=== PATIENT | male | born 1940 | race Caucasian/White ===

== ENCOUNTER 2017-08-07 21:49 | Emergency (ER) | payer MEDICARE, OTHER ==
--- NOTE | 2017-08-07 22:47 | EDM.PDOC ---
ED HPI GENERAL MEDICAL PROBLEM - General Chief Complaint: General Stated Complaint: WHOLE BODY HURTS, [id number] Time Seen by Provider: 08/07/17 22:46 Source of Information: Reports: Patient History Limitations: Reports: No Limitations - History of Present Illness INITIAL COMMENTS - FREE TEXT/NARRATIVE: states doesn't feel good since "they" took away his grand-daughter. Headache Pain Score (Numeric/FACES): 7 Abdomen Pain Score (Numeric/FACES): 4 - Related Data Allergies Allergy/AdvReac Type Severity Reaction Status Date / Time morphine Allergy Severe Difficulty Verified 08/07/17 22:55 Breathing amoxicillin [Amoxicillin] Allergy Diarrhea Verified 08/07/17 22:55 doxycycline Allergy Rash Verified 08/07/17 22:55 gabapentin Allergy Cannot Verified 08/07/17 22:55 Remember tiotropium bromide Allergy Cannot Verified 08/07/17 22:55 [From [facility] with Remember HandiHaler] Home Meds: Home Meds Acetaminophen [Tylenol Extra Strength] 1,000 mg PO BID 03/08/14 [History] Albuterol [Proventil Neb Soln] 1 unit NEB Q4HR PRN 03/08/14 [History] Albuterol [Proventil] 2.5 mg NEB BID 03/08/14 [History] Albuterol [Ventolin HFA] 2 puff INH Q6H PRN 03/08/14 [History] Aspirin [Ecotrin] 81 mg PO DAILY 03/08/14 [History] Atenolol [Tenormin] 50 mg PO DAILY 03/08/14 [History] Fish Oil/[place]-3 Fatty Acids [Fish Oil 1,000 MG] 1 gm PO BID 03/08/14 [History] Furosemide [Lasix] 60 mg PO DAILY 03/08/14 [History] Nitroglycerin [Nitrostat] 0.4 mg SL ASDIRECTED PRN 03/08/14 [History] Omeprazole 20 mg PO DAILY 03/08/14 [History] Potassium Chloride [Klor-Con] 40 meq PO BID 03/08/14 [History] Simvastatin [Zocor] 10 mg PO BEDTIME 03/08/14 [History] Tamsulosin [Flomax] 0.4 mg PO DAILY 03/08/14 [History] Aclidinium [place] [Tudorza Pressair] 400 mcg INH BID 04/12/14 [History] Finasteride [Finasteride] 5 mg PO DAILY 04/04/15 [History] Mometasone/Formoterol [Dulera 200-5 MCG] 1 puff INH ASDIRECTED 04/04/15 [History ] rOPINIRole [Requip] 0.5 mg PO ASDIRECTED 04/04/15 [History] Benzonatate [Tessalon Perles] 100 mg PO QID PRN #10 cap 02/07/16 [Rx] Past Medical History HEENT History: Reports: Hard of Hearing, Impaired Vision Other HEENT History: bilateral hearing aids, glasses Cardiovascular History: Reports: High Cholesterol, Hypertension, Stents Respiratory History: Reports: Bronchitis, Recurrent, COPD, Pneumonia, Recurrent , SOB, Other (See Below) Other Respiratory History: lung mass/lung cancer, left upper lobectomy Gastrointestinal History: Reports: GERD, Pancreatitis Other Gastrointestinal History: duodenal ulcer disease Other Genitourinary History: BPH Musculoskeletal History: Reports: Arthritis, Fracture Other Musculoskeletal History: ankle arthroscopy, 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 Psychiatric History: Reports: Anxiety Endocrine/Metabolic History: Reports: Diabetes, Type II Oncologic (Cancer) History: Reports: Lung - Infectious Disease History Infectious Disease History: Reports: Chicken Pox, Measles, Mumps - Past Surgical History HEENT Surgical History: Reports: Adenoidectomy, Cataract Surgery, Tonsillectomy , Other (See Below) Cardiovascular Surgical History: Reports: Coronary Artery Stent, Other (See Below) GI Surgical History: Reports: Cholecystectomy, Colonoscopy, EGD Male Surgical History: Reports: Other (See Below) Social & Family History - Family History Cardiac: Reports: Hypertension, [place] - Tobacco Use Smoking Status *Q: Former Smoker Years of Tobacco use: 40 Packs/Tins Daily: 2.5 Used Tobacco, but Quit: Yes Month Tobacco Last Used: 26 years ago Second Hand Smoke Exposure: Yes - Caffeine Use Caffeine Use: Reports: Coffee - Alcohol Use Days Per Week of Alcohol Use: 0 - Recreational Drug Use Recreational Drug Use: No Drug Use in Last 12 Months: No ED ROS GENERAL - Review of Systems Review Of Systems: ROS reveals no pertinent complaints other than HPI. ED EXAM, GENERAL - Physical Exam Exam: See Below Exam Limited By: No Limitations General Appearance: Alert, WD/WN, Mild Distress, Other (tearful upset) Ears: Hearing Grossly Normal Throat/Mouth: Normal Voice, No Airway Compromise Head: Atraumatic Neck: Non-Tender, Full Range of Motion Respiratory/Chest: No Respiratory Distress, No Accessory Muscle Use, Rhonchi, Other (basilar) Cardiovascular: Regular Rate, Rhythm GI/Abdominal: Soft, Non-Tender Neurological: Alert, Oriented, Normal Cognition, Normal Gait, No Motor/Sensory Deficits Psychiatric: Depressed Mood, Tearful Skin Exam: Warm, Dry, Normal Color Lymphatic: No Adenopathy Course - Vital Signs Last Recorded V/S: Last Vital Signs Temp 37.3 C 08/07/17 22:25 Pulse 101 H 08/07/17 22:25 Resp 22 H 08/07/17 22:25 BP 139/108 H 08/07/17 22:25 Pulse Ox 92 L 08/07/17 22:25 - Orders/Labs/Meds Orders: Active Orders 24 hr Category Date Time Status EKG 12 Lead [EKG Documentation Completion] [RC] STAT Care 08/07/17 22:44 Active Sodium Chloride 0.9% [Normal Saline] 1,000 ml Med 08/07/17 23:00 Active IV ASDIRECTED Medication Orders Sodium Chloride (Normal Saline) 1,000 mls @ 100 mls/hr IV ASDIRECTED TITO Last Admin: 08/07/17 22:50 Dose: 100 mls/hr Labs: Laboratory Tests 08/07/17 08/07/17 Range/Units 22:44 22:44 WBC 13.4 H (5.0-10.0) 10^3/uL RBC 4.31 L (4.6-6.2) 10^6/uL Hgb 13.8 L D (14.0-18.0) g/dL Hct 40.6 (40.0-54.0) % MCV 94.2 D (80-100) fL MCH 32.0 (27.0-34.0) pg MCHC 34.0 (33.0-35.0) g/dL Plt Count 170 D (150-450) 10^3/uL Neut % (Auto) 77.8 H (42.2-75.2) % Lymph % (Auto) 14.5 L (20.5-50.1) % [place] % (Auto) 7.1 (2-8) % Eos % (Auto) 0.5 L (1.0-3.0) % Baso % (Auto) 0.1 (0.0-1.0) % Sodium 137 (135-145) mmol/L Potassium 4.0 (3.6-5.0) mmol/L Chloride 102 (101-111) mmol/L Carbon Dioxide 28.0 (21.0-31.0) mmol/L Anion Gap 11.0 BUN 21 H (7-18) mg/dL Creatinine 1.4 H (0.6-1.3) mg/dL Est Cr Clr Drug Dosing 47.73 mL/min Estimated GFR (MDRD) 49 BUN/Creatinine Ratio 15.00 Glucose 174 H (74-105) mg/dL Calcium 8.8 (8.4-10.2) mg/dl Total Bilirubin 1.0 (0.2-1.0) mg/dL AST 19 (10-42) IU/L ALT 19 (10-60) IU/L Alkaline Phosphatase 81 (42-121) IU/L Troponin I < 0.02 (0.00-0.02) ng/ml Total Protein 6.6 L (6.7-8.2) g/dl Albumin 3.9 (3.2-5.5) g/dl Globulin 2.7 Albumin/Globulin Ratio 1.44 Amylase 30 (28-100) U/L Lipase 20 L (22-51) U/L Meds: Medications Generic Name Dose Route Start Last Admin Trade Name Freq PRN Reason Stop Dose Admin Sodium Chloride 1,000 mls @ 100 mls/hr 08/07/17 23:00 08/07/17 22:50 Normal Saline IV 100 mls/hr ASDIRECTED TITO Administration Discontinued Medications Generic Name Dose Route Start Last Admin Trade Name Freq PRN Reason Stop Dose Admin Acetaminophen 325 mg 08/08/17 01:26 08/08/17 01:31 Tylenol PO 08/08/17 01:27 325 mg NOW ONE Administration - Re-Assessments/Exams Free Text/Narrative Re-Assessment/Exam: 08/08/17 00:23 Crisis called casr discussed with Richa who found placement in [place]. 08/08/17 03:28 case discussed with [facility] Mei Delgado kindly accepted pt. Departure - Departure Time of Disposition: 03:29 Disposition: DC/Tfer to Psych Hosp/Unit [facility] Condition: Good Clinical Impression: Suicidal ideation - Discharge Information Forms: Interfacility Transfer LEANNE - My Orders Last 24 Hours: My Active Orders 08/07/17 22:44 EKG 12 Lead [EKG Documentation Completion] [RC] STAT 08/07/17 23:00 Sodium Chloride 0.9% [Normal Saline] 1,000 ml IV ASDIRECTED - Assessment/Plan Last 24 Hours: My Active Orders 08/07/17 22:44 EKG 12 Lead [EKG Documentation Completion] [RC] STAT 08/07/17 23:00 Sodium Chloride 0.9% [Normal Saline] 1,000 ml IV ASDIRECTED
[2017-08-07] MEDS ORDERED: Sodium Chloride 0.9% 1,000 ML IV SCH (23:00)
[2017-08-07 23:12] LABS: CHLORIDE,CL 102 mmol/L (101-111); SODIUM,NA 137 mmol/L (135-145)
[2017-08-07 23:15] VITALS: BP 139/108
[2017-08-08] MEDS ORDERED: Acetaminophen 325 MG Tab PO ONE (01:26)
--- NOTE | 2017-08-08 13:51 | EKG ---
08/07/2017- ANGIE CRAWFORD - EKG per my reading shows sinus rhythm at a rate of 100. No acute ST changes. [facility] /[id number]
== END 2017-08-08 04:10 ==
LOC: DL.ED 21:49
DX: R45.851 Suicidal ideations (principal); E78.00 Pure hypercholesterolemia, unspecified; I10 Essential (primary) hypertension; E11.9 Type 2 diabetes mellitus without complications; F41.9 Anxiety disorder, unspecified; K21.9 Gastro-esophageal reflux disease without esophagitis; Z87.01 Personal history of pneumonia (recurrent); J44.9 Chronic obstructive pulmonary disease, unspecified; Z90.49 Acquired absence of other specified parts of digestive tract; Z98.890 Other specified postprocedural states; Z87.891 Personal history of nicotine dependence; Z88.5 Allergy status to narcotic agent; Z88.8 Allergy status to other drugs, medicaments and biological substances; Z79.899 Other long term (current) drug therapy; Z88.1 Allergy status to other antibiotic agents
CPT/HCPCS: 36415; 80053; 82150; 83690; 84484; 85025; 93005; 93010; 96360; 96361; 99285; A9270; J7030; 99284

== ENCOUNTER 2019-01-16 11:17 | Emergency (ER) | payer MEDICARE, OTHER ==
[2019-01-16 11:27] VITALS: BP 130/67
--- NOTE | 2019-01-16 11:57 | EDM.PDOC ---
ED HPI GENERAL MEDICAL PROBLEM - General Chief Complaint: Lower Extremity Injury/Pain Stated Complaint: DRESSING CHANGE Time Seen by Provider: 01/16/19 11:52 Source of Information: Reports: Patient History Limitations: Reports: No Limitations - History of Present Illness INITIAL COMMENTS - FREE TEXT/NARRATIVE: s/p ORIF yesterday @ [place], was bleeding post op but told will stop but didn't, called [place] told to come here. family states bleeding looks worse today. Right Foot Pain Score (Numeric/FACES): 5 - Related Data Allergies Allergy/AdvReac Type Severity Reaction Status Date / Time morphine Allergy Severe Difficulty Verified 01/16/19 11:22 Breathing amoxicillin [Amoxicillin] Allergy Diarrhea Verified 01/16/19 11:22 doxycycline Allergy Rash Verified 01/16/19 11:22 gabapentin Allergy Cannot Verified 01/16/19 11:22 Remember tiotropium bromide Allergy Cannot Verified 01/16/19 11:22 [From [facility] with Remember HandiHaler] Home Meds: Home Meds Acetaminophen [Tylenol Extra Strength] 1,000 mg PO BID 03/08/14 [History] Albuterol [Proventil Neb Soln] 1 unit NEB Q4HR PRN 03/08/14 [History] Albuterol [Proventil] 2.5 mg NEB BID 03/08/14 [History] Albuterol [Ventolin HFA] 2 puff INH Q6H PRN 03/08/14 [History] Aspirin [Ecotrin] 81 mg PO DAILY 03/08/14 [History] Atenolol [Tenormin] 50 mg PO DAILY 03/08/14 [History] Fish Oil/[place]-3 Fatty Acids [Fish Oil 1,000 MG] 1 gm PO BID 03/08/14 [History] Furosemide [Lasix] 60 mg PO DAILY 03/08/14 [History] Nitroglycerin [Nitrostat] 0.4 mg SL ASDIRECTED PRN 03/08/14 [History] Omeprazole 20 mg PO DAILY 03/08/14 [History] Potassium Chloride [Klor-Con] 40 meq PO BID 03/08/14 [History] Simvastatin [Zocor] 10 mg PO BEDTIME 03/08/14 [History] Tamsulosin [Flomax] 0.4 mg PO DAILY 03/08/14 [History] Aclidinium [place] [Tudorza Pressair] 400 mcg INH BID 04/12/14 [History] Finasteride 5 mg PO DAILY 04/04/15 [History] Mometasone/Formoterol [Dulera 200-5 MCG] 1 puff INH ASDIRECTED 04/04/15 [History ] rOPINIRole [Requip] 0.5 mg PO ASDIRECTED 04/04/15 [History] Benzonatate [Tessalon Perles] 100 mg PO QID PRN #10 cap 02/07/16 [Rx] Past Medical History HEENT History: Reports: Hard of Hearing, Impaired Vision Other HEENT History: bilateral hearing aids, glasses Cardiovascular History: Reports: High Cholesterol, Hypertension, Stents Respiratory History: Reports: Bronchitis, Recurrent, COPD, Pneumonia, Recurrent , SOB, Other (See Below) Other Respiratory History: lung mass/lung cancer, left upper lobectomy Gastrointestinal History: Reports: GERD, Pancreatitis Other Gastrointestinal History: duodenal ulcer disease Other Genitourinary History: BPH Musculoskeletal History: Reports: Arthritis, Fracture Other Musculoskeletal History: ankle arthroscopy, intercostal neuralgia Neurological History: Reports: Other (See Below) Other Neuro History: intercostal neuralgia Psychiatric History: Reports: Anxiety Endocrine/Metabolic History: Reports: Diabetes, Type II Hematologic History: Reports: None Immunologic History: Reports: None Oncologic (Cancer) History: Reports: Lung Dermatologic History: Reports: None - Infectious Disease History Infectious Disease History: Reports: Chicken Pox, Measles, Mumps - Past Surgical History Head Surgeries/Procedures: Reports: None HEENT Surgical History: Reports: Adenoidectomy, Cataract Surgery, Tonsillectomy , Other (See Below) Cardiovascular Surgical History: Reports: Coronary Artery Stent, Other (See Below) GI Surgical History: Reports: Cholecystectomy, Colonoscopy, EGD Male Surgical History: Reports: Other (See Below) Social & Family History - Family History Family Medical History: Noncontributory Cardiac: Reports: Hypertension, [place] - Tobacco Use Smoking Status *Q: Former Smoker Used Tobacco, but Quit: Yes Month/Year Tobacco Last Used: ? - Caffeine Use Caffeine Use: Reports: Coffee - Recreational Drug Use Recreational Drug Use: No Review of Systems - Review of Systems Review Of Systems: ROS reveals no pertinent complaints other than HPI. ED EXAM, GENERAL - Physical Exam Exam: See Below Exam Limited By: No Limitations General Appearance: Alert, WD/WN, Mild Distress, Other ([place]) Ears: Hearing Grossly Normal Throat/Mouth: Normal Voice, No Airway Compromise Head: Atraumatic Neck: Non-Tender, Full Range of Motion Respiratory/Chest: No Respiratory Distress Cardiovascular: Regular Rate, Rhythm GI/Abdominal: Soft, Non-Tender Extremities: Other (right post op wound without s/s cellulitis, kelly intact, minimal oozing, [place] wnl.) Neurological: Alert, Oriented, Normal Cognition, No Motor/Sensory Deficits Psychiatric: Normal Affect, Normal Mood Skin Exam: Warm, Dry, Normal Color Lymphatic: No Adenopathy Course - Vital Signs Last Recorded V/S: Last Vital Signs Temp 36.6 C 01/16/19 11:23 Pulse 88 01/16/19 11:23 Resp 20 01/16/19 11:23 BP 130/67 01/16/19 11:23 Pulse Ox 95 01/16/19 11:23 - Re-Assessments/Exams Free Text/Narrative Re-Assessment/Exam: 01/16/19 13:29 results discussed with pt. no further bleeding from surgical site. redressed. Departure - Departure Time of Disposition: 13:30 Disposition: Home, Self-Care 01 Condition: Good Clinical Impression: Post-op bleeding Qualifiers: Surgical complication system/body Area: subcutaneous tissue Procedure type: dermatologic Qualified Code(s): L76.21 - Postprocedural hemorrhage of skin and subcutaneous tissue following a dermatologic procedure - Discharge Information Forms: ED Department Discharge Additional Instructions: 1) elevated leg as much as possible next 48 hours 2) see surgeon Friday if still oozing 3) recheck if there is any change or concern
== END 2019-01-16 13:37 | disposition home or self-care (01) ==
LOC: DL.ED 11:17
DX: M96.830 Postprocedural hemorrhage of a musculoskeletal structure following a musculoskeletal system procedure (principal); E78.00 Pure hypercholesterolemia, unspecified; I10 Essential (primary) hypertension; E11.9 Type 2 diabetes mellitus without complications; Z87.891 Personal history of nicotine dependence; Z88.1 Allergy status to other antibiotic agents; Z95.5 Presence of coronary angioplasty implant and graft; Z88.5 Allergy status to narcotic agent; Z88.8 Allergy status to other drugs, medicaments and biological substances; Z79.899 Other long term (current) drug therapy
CPT/HCPCS: 76881-RT; 99283-25

== ENCOUNTER 2020-11-05 10:40 | Inpatient (IN) | payer OTHER, MEDICARE ==
--- NOTE | 2020-11-05 10:44 | EDM.PDOC ---
ED HPI GENERAL MEDICAL PROBLEM - General Chief Complaint: General Stated Complaint: AMBULANCE Time Seen by Provider: 11/05/20 10:43 Source of Information: Reports: Patient, RN, RN Notes Reviewed History Limitations: Reports: No Limitations - History of Present Illness INITIAL COMMENTS - FREE TEXT/NARRATIVE: Patient is an 79-year-old male who presents to ER per [facility] with complaint of increased shortness of breath and left hip pain. Patient states he was diagnosed with pneumonia approximately 3 weeks ago, was tested for Covid at that time and that was negative. Also states he slipped and fell on the ice approximately 3 weeks ago and has been having some left left hip pain today he was unable to get up on his own. Having a productive sputum with cough, sputum is thick yellow. Chest pains and some shortness of breath. No vomiting but does complain of nausea. States he has had diarrhea. States he had blood in the stool 1 time last week, bright red blood. States he has had a temp at home 99-99.5, chills. States he has been using Tylenol and ibuprofen quite frequently for the pain. States history of stents in his heart, 3 of them. Unknown if he has had an IA in the past. Patient admits to diabetes and emphysema. Onset: Gradual Left Hip Pain Score (Numeric/FACES): 1 - Related Data Allergies Allergy/AdvReac Type Severity Reaction Status Date / Time morphine Allergy Severe Difficulty Verified 11/05/20 12:01 Breathing amoxicillin [Amoxicillin] Allergy Diarrhea Verified 11/05/20 12:01 doxycycline Allergy Rash Verified 11/05/20 12:01 gabapentin Allergy Cannot Verified 11/05/20 12:01 Remember oxycodone Allergy Confusion Verified 11/05/20 12:01 tiotropium bromide Allergy Cannot Verified 11/05/20 12:01 [From [facility] with Remember HandiHaler] Home Meds: Home Meds Acetaminophen [Tylenol Extra Strength] 1,000 mg PO BID PRN 03/08/14 [History] Albuterol [Proventil] 2.5 mg NEB BID PRN 03/08/14 [History] Albuterol [Ventolin HFA] 2 puff INH Q6H PRN 03/08/14 [History] Aspirin [Ecotrin EC] 81 mg PO DAILY 03/08/14 [History] Atenolol [Tenormin] 50 mg PO DAILY 03/08/14 [History] Fish Oil/[place]-3 Fatty Acids [Fish Oil 1,000 MG] 1 gm PO BID 03/08/14 [History] Furosemide [Lasix] 60 mg PO DAILY 03/08/14 [History] Nitroglycerin [Nitrostat] 0.4 mg SL ASDIRECTED PRN 03/08/14 [History] Omeprazole 20 mg PO DAILY 03/08/14 [History] Potassium Chloride [Klor-Con] 40 meq PO BID 03/08/14 [History] Simvastatin [Zocor] 10 mg PO BEDTIME 03/08/14 [History] Tamsulosin [Flomax] 0.4 mg PO DAILY 03/08/14 [History] Finasteride 5 mg PO DAILY 04/04/15 [History] Mometasone/Formoterol [Dulera 200-5 MCG] 1 puff INH ASDIRECTED 04/04/15 [History] rOPINIRole [Requip] 0.5 mg PO DAILY 04/04/15 [History] Insulin Glarg,Human.Rec.Analog [Lantus] 16 units SQ BEDTIME 11/05/20 [History] Past Medical History HEENT History: Reports: Hard of Hearing, Impaired Vision Other HEENT History: bilateral hearing aids, glasses Cardiovascular History: Reports: High Cholesterol, Hypertension, Stents Respiratory History: Reports: Bronchitis, Recurrent, COPD, Pneumonia, Recurrent, SOB, Other (See Below) Other Respiratory History: lung mass/lung cancer, left upper lobectomy Gastrointestinal History: Reports: GERD, Pancreatitis Other Gastrointestinal History: duodenal ulcer disease Other Genitourinary History: BPH Musculoskeletal History: Reports: Arthritis, Fracture Other Musculoskeletal History: ankle arthroscopy, intercostal neuralgia Neurological History: Reports: Other (See Below) Other Neuro History: intercostal neuralgia Psychiatric History: Reports: Anxiety Endocrine/Metabolic History: Reports: Diabetes, Type II Hematologic History: Reports: None Immunologic History: Reports: None Oncologic (Cancer) History: Reports: Lung Dermatologic History: Reports: None - Infectious Disease History Infectious Disease History: Reports: Chicken Pox, Measles, Mumps - Past Surgical History Head Surgeries/Procedures: Reports: None HEENT Surgical History: Reports: Adenoidectomy, Cataract Surgery, Tonsillectomy, Other (See Below) Cardiovascular Surgical History: Reports: Coronary Artery Stent, Other (See Below) GI Surgical History: Reports: Cholecystectomy, Colonoscopy, EGD Male Surgical History: Reports: Other (See Below) Social & Family History - Family History Family Medical History: No Pertinent Family History Cardiac: Reports: Hypertension, IA - Caffeine Use Caffeine Use: Reports: Coffee ED ROS GENERAL - Review of Systems Review Of Systems: Comprehensive ROS is negative, except as noted in HPI. ED EXAM, GENERAL - Physical Exam Exam: See Below Exam Limited By: Physical Impairment General Appearance: Alert, WD/WN, Mild Distress Eye Exam: Bilateral Eye: EOMI, Normal Inspection Ears: Normal External Exam, Hearing Grossly Normal Nose: Normal Inspection Throat/Mouth: Normal Inspection, Normal Voice, No Airway Compromise Head: Atraumatic, Normocephalic Neck: Normal Inspection, Supple, Non-Tender, Full Range of Motion Respiratory/Chest: No Respiratory Distress, Decreased Breath Sounds, Crackles (throughout), Rhonchi (throughout\\) Cardiovascular: Normal Peripheral Pulses, Regular Rate, Rhythm, No Edema, No Gallop, No JVD, No Murmur, No Rub Peripheral Pulses: 2+: Radial (L), Radial (R) GI/Abdominal: Normal Bowel Sounds, Soft, Non-Tender (Male) Exam: Deferred Rectal (Males) Exam: Deferred Back Exam: Normal Inspection, Decreased Range of Motion Extremities: Leg Pain (left leg/hip pain), Limited Range of Motion (left leg/hip) Neurological: Alert, Oriented, CN II-XII Intact, Normal Cognition Psychiatric: Normal Affect, Normal Mood Skin Exam: Warm, Dry, Intact, Normal Color, No Rash Lymphatic: No Adenopathy Course - Vital Signs Last Recorded V/S: Last Vital Signs Temp 97.6 F 11/05/20 10:42 Pulse 71 11/05/20 10:42 Resp 16 11/05/20 10:42 BP 145/74 H 11/05/20 10:42 Pulse Ox 100 11/05/20 10:42 - Orders/Labs/Meds Orders: Active Orders 24 hr Category Date Time Status Admission Diagnosis [ADT] Stat ADT 11/05/20 14:51 Ordered Patient Status [ADT] Routine ADT 11/05/20 14:51 Active CULTURE BLOOD [BC] Stat Lab 11/05/20 10:54 Received CULTURE BLOOD [BC] Stat Lab 11/05/20 10:59 Received UA W/ANKUR RFLX IF INDICATED [URIN] Stat Lab 11/05/20 10:29 Ordered Blood Culture x2 Reflex Set [OM.PC] Stat Oth 11/05/20 10:29 Ordered Labs: Laboratory Tests 11/05/20 11/05/20 11/05/20 Range/Units 10:54 10:54 10:54 WBC 3.8 L (5.0-10.0) 10^3/uL RBC 4.08 L (4.6-6.2) 10^6/uL Hgb 13.1 L (14.0-18.0) g/dL Hct 38.4 L (40.0-54.0) % MCV 94.1 (80-100) fL MCH 32.1 (27.0-34.0) pg MCHC 34.1 (33.0-35.0) g/dL Plt Count 134 L (150-450) 10^3/uL Neut % (Auto) 63.5 (42.2-75.2) % Lymph % (Auto) 31.2 (20.5-50.1) % Cook % (Auto) 4.5 (2-8) % Eos % (Auto) 0.8 L (1.0-3.0) % Baso % (Auto) 0.0 (0.0-1.0) % PT 10.0 (9.0-12.0) SEC INR 1.1 (0.9-1.2) D-Dimer, Quantitative 501 H (0-400) ng/mL Sodium 137 (136-145) mmol/L Potassium 3.7 (3.5-5.1) mmol/L Chloride 103 (98-107) mmol/L Carbon Dioxide 26 (21-32) mmol/L Anion Gap 11.7 (7-13) mEq/L BUN 12 (7-18) mg/dL Creatinine 0.91 (0.70-1.30) mg/dL Est Cr Clr Drug Dosing 69.88 mL/min Estimated GFR (MDRD) > 60 BUN/Creatinine Ratio 13.2 (No establ ref range) Glucose 114 H (74-99) mg/dL Lactic Acid (0.4-2.0) mmol/L Calcium 7.7 L (8.5-10.1) mg/dL Magnesium 1.9 (1.8-2.4) mg/dL Total Bilirubin 0.4 (0.2-1.0) mg/dL AST 30 (15-37) U/L ALT 31 (16-63) U/L Alkaline Phosphatase 74 (46-116) U/L Lactate Dehydrogenase 231 H (85-227) U/L Troponin I 0.019 (0.000-0.056) ng/mL C-Reactive Protein 4.1 H (0.0-0.9) mg/dL B-Natriuretic Peptide 53 (0-100) pg/ml Total Protein 5.5 L (6.4-8.2) g/dL Albumin 2.5 L (3.4-5.0) g/dL Globulin 3.0 Albumin/Globulin Ratio 0.83 Salicylates (2.8-20(Therapeutic)) mg/dL Acetaminophen (10-30 (Therapeutic)) ug/mL SARS-CoV-2 RNA (PAWEL) (NEGATIVE) 11/05/20 11/05/20 11/05/20 Range/Units 10:54 10:54 10:54 WBC (5.0-10.0) 10^3/uL RBC (4.6-6.2) 10^6/uL Hgb (14.0-18.0) g/dL Hct (40.0-54.0) % MCV (80-100) fL MCH (27.0-34.0) pg MCHC (33.0-35.0) g/dL Plt Count (150-450) 10^3/uL Neut % (Auto) (42.2-75.2) % Lymph % (Auto) (20.5-50.1) % Cook % (Auto) (2-8) % Eos % (Auto) (1.0-3.0) % Baso % (Auto) (0.0-1.0) % PT (9.0-12.0) SEC INR (0.9-1.2) D-Dimer, Quantitative (0-400) ng/mL Sodium (136-145) mmol/L Potassium (3.5-5.1) mmol/L Chloride (98-107) mmol/L Carbon Dioxide (21-32) mmol/L Anion Gap (7-13) mEq/L BUN (7-18) mg/dL Creatinine (0.70-1.30) mg/dL Est Cr Clr Drug Dosing mL/min Estimated GFR (MDRD) BUN/Creatinine Ratio (No establ ref range) Glucose (74-99) mg/dL Lactic Acid 0.9 (0.4-2.0) mmol/L Calcium (8.5-10.1) mg/dL Magnesium (1.8-2.4) mg/dL Total Bilirubin (0.2-1.0) mg/dL AST (15-37) U/L ALT (16-63) U/L Alkaline Phosphatase (46-116) U/L Lactate Dehydrogenase (85-227) U/L Troponin I (0.000-0.056) ng/mL C-Reactive Protein (0.0-0.9) mg/dL B-Natriuretic Peptide (0-100) pg/ml Total Protein (6.4-8.2) g/dL Albumin (3.4-5.0) g/dL Globulin Albumin/Globulin Ratio Salicylates < 2.8 L (2.8-20(Therapeutic)) mg/dL Acetaminophen 14 (10-30 (Therapeutic)) ug/mL SARS-CoV-2 RNA (PAWEL) (NEGATIVE) 11/05/20 Range/Units 11:10 WBC (5.0-10.0) 10^3/uL RBC (4.6-6.2) 10^6/uL Hgb (14.0-18.0) g/dL Hct (40.0-54.0) % MCV (80-100) fL MCH (27.0-34.0) pg MCHC (33.0-35.0) g/dL Plt Count (150-450) 10^3/uL Neut % (Auto) (42.2-75.2) % Lymph % (Auto) (20.5-50.1) % Cook % (Auto) (2-8) % Eos % (Auto) (1.0-3.0) % Baso % (Auto) (0.0-1.0) % PT (9.0-12.0) SEC INR (0.9-1.2) D-Dimer, Quantitative (0-400) ng/mL Sodium (136-145) mmol/L Potassium (3.5-5.1) mmol/L Chloride (98-107) mmol/L Carbon Dioxide (21-32) mmol/L Anion Gap (7-13) mEq/L BUN (7-18) mg/dL Creatinine (0.70-1.30) mg/dL Est Cr Clr Drug Dosing mL/min Estimated GFR (MDRD) BUN/Creatinine Ratio (No establ ref range) Glucose (74-99) mg/dL Lactic Acid (0.4-2.0) mmol/L Calcium (8.5-10.1) mg/dL Magnesium (1.8-2.4) mg/dL Total Bilirubin (0.2-1.0) mg/dL AST (15-37) U/L ALT (16-63) U/L Alkaline Phosphatase (46-116) U/L Lactate Dehydrogenase (85-227) U/L Troponin I (0.000-0.056) ng/mL C-Reactive Protein (0.0-0.9) mg/dL B-Natriuretic Peptide (0-100) pg/ml Total Protein (6.4-8.2) g/dL Albumin (3.4-5.0) g/dL Globulin Albumin/Globulin Ratio Salicylates (2.8-20(Therapeutic)) mg/dL Acetaminophen (10-30 (Therapeutic)) ug/mL SARS-CoV-2 RNA (PAWEL) Positive H (NEGATIVE) Meds: Medications Discontinued Medications Generic Name Dose Route Start Last Admin Trade Name Freq PRN Reason Stop Dose Admin Fentanyl 100 mcg 11/05/20 13:40 11/05/20 13:53 Sublimaze IVPUSH 11/05/20 13:41 100 mcg ONETIME ONE Administration Iopamidol 100 ml 11/05/20 13:31 11/05/20 13:53 [id number] (76%) IVPUSH 11/05/20 13:32 100 ml ONETIME ONE Administration - Radiology Interpretation Free Text/Narrative:: Chest xray: PROCEDURE INFORMATION: Exam: XR Chest, 1 View Exam date and time: 11/05/2020 12:31 PM Age: 79 years old Clinical indication: Other: Covid + HX left lung lobectomy; Additional info: Productive cough, SOB, chest pains TECHNIQUE: Imaging protocol: XR of the chest Views: 1 view. COMPARISON: CT Chest wo Cont 10/19/2019 11:05 AM FINDINGS: Lungs: Left-sided volume loss with the generalized haziness likely due to pleural thickening. Possible localized infiltrate in the right lower lung field. No definite soft tissue mass. Pleural space: Unremarkable. No pleural effusion. No pneumothorax. Heart/Mediastinum: Unremarkable. No cardiomegaly. Bones/joints: Unremarkable. IMPRESSION: 1. Findings in the left hemithorax likely due to previous surgery. 2. Possible focal infiltrate in the right lower lobe. Follow-up recommended. Thank you for allowing us to participate in the care of your patient. Dictated and Authenticated by: Tim Cotton MD 11/05/2020 1:14 PM Central Time ([place] & [place]) Left hip/pelvis xray: PROCEDURE INFORMATION: Exam: XR Left Hip with Pelvis when Performed Exam date and time: 11/05/2020 12:46 PM Age: 79 years old Clinical indication: Other: Pain; Additional info: Fall x3 weeks ago, pain, unable to stand TECHNIQUE: Imaging protocol: XR Left hip with pelvis when performed. Views: 2 or 3 views. COMPARISON: No relevant prior studies available. FINDINGS: Bones/joints: Unremarkable. No acute fracture. Soft tissues: Unremarkable. IMPRESSION: No acute findings. Thank you for allowing us to participate in the care of your patient. Dictated and Authenticated by: Tim Cotton MD 11/05/2020 1:15 PM Central Time ( & [place]) Chest CT with contrast: PROCEDURE INFORMATION: Exam: CT Chest With Contrast; Diagnostic Exam date and time: 11/05/2020 1:55 PM Age: 79 years old Clinical indication: Other: Pe protocol--d-dimer 508; Additional info: Covid positive, elevated d dimer TECHNIQUE: Imaging protocol: Diagnostic computed tomography of the chest with intravenous contrast. Radiation optimization: All CT scans at this facility use at least one of these dose optimization techniques: automated exposure control; mA and/or kV adjustment per patient size (includes targeted exams where dose is matched to clinical indication); or iterative reconstruction. Contrast material: [id number]; Contrast volume: 84 ml; Contrast route: INTRAVENOUS (IV); COMPARISON: CT Chest wo Cont 10/19/2019 11:05 AM FINDINGS: Lungs: Extensive consolidation/ground-glass opacities throughout the right lung and left lower lobe with prominent "honeycombing". No discrete soft tissue mass or nodule observed. Pleural space: Unremarkable. No pneumothorax. No pleural effusion. Heart: Unremarkable. No cardiomegaly. No pericardial effusion. Aorta: Unremarkable. No aortic aneurysm. Lymph nodes: Mediastinal adenopathy most likely reactive. Bones/joints: Unremarkable. No acute fracture. Soft tissues: Moderate-sized hiatus hernia. IMPRESSION: 1. Multi lobar pneumonitis compatible with COVID-19 infection. 2. No definite evidence of acute PE. 3. Mediastinal lymphadenopathy most likely reactive. 4. Moderate-sized hiatus hernia. Thank you for allowing us to participate in the care of your patient. Dictated and Authenticated by: Tim Cotton MD 11/05/2020 2:46 PM Central Time ([place] & [place]) See rad report - Re-Assessments/Exams Free Text/Narrative Re-Assessment/Exam: 11/05/20 15:19 Discussed patient case with Dr. Rubio who agreed to accept the patient for inpatient acute admission. Departure - Departure Time of Disposition: 15:18 Disposition: Admitted As Inpatient 64 Condition: Fair Clinical Impression: Pneumonia due to COVID-19 virus, Left hip pain, Generalized weakness Emphysema lung Qualifiers: Emphysema type: unspecified Qualified Code(s): J43.9 - Emphysema, unspecified - Discharge Information *PRESCRIPTION DRUG MONITORING PROGRAM REVIEWED*: No *COPY OF PRESCRIPTION DRUG MONITORING REPORT IN PATIENT MARIANNE: No Forms: ED Department Discharge Sepsis Event Note (ED) - Focused Exam Vital Signs: Vital Signs Temp Pulse Resp BP Pulse Ox 11/05/20 10:42 97.6 F 71 16 145/74 H 100 - My Orders Last 24 Hours: My Active Orders 11/05/20 10:29 UA W/ANKUR RFLX IF INDICATED [URIN] Stat Blood Culture x2 Reflex Set [OM.PC] Stat 11/05/20 10:54 CULTURE BLOOD [BC] Stat 11/05/20 10:59 CULTURE BLOOD [BC] Stat 11/05/20 14:51 Admission Diagnosis [ADT] Stat Patient Status [ADT] Routine - Assessment/Plan Last 24 Hours: My Active Orders 11/05/20 10:29 UA W/ANKUR RFLX IF INDICATED [URIN] Stat Blood Culture x2 Reflex Set [OM.PC] Stat 11/05/20 10:54 CULTURE BLOOD [BC] Stat 11/05/20 10:59 CULTURE BLOOD [BC] Stat 11/05/20 14:51 Admission Diagnosis [ADT] Stat Patient Status [ADT] Routine
[2020-11-05 11:37] LABS: ANION GAP 11.7 mEq/L (7-13); CHLORIDE,CL 103 mmol/L (98-107); SODIUM,NA 137 mmol/L (136-145)
--- NOTE | 2020-11-05 13:14 | CR ---
PROCEDURE INFORMATION: Exam: XR Chest, 1 View Exam date and time: 11/05/2020 12:31 PM Age: 79 years old Clinical indication: Other: Covid + HX left lung lobectomy; Additional info: Productive cough, SOB, chest pains TECHNIQUE: Imaging protocol: XR of the chest Views: 1 view. COMPARISON: CT Chest wo Cont 10/19/2019 11:05 AM FINDINGS: Lungs: Left-sided volume loss with the generalized haziness likely due to pleural thickening. Possible localized infiltrate in the right lower lung field. No definite soft tissue mass. Pleural space: Unremarkable. No pleural effusion. No pneumothorax. Heart/Mediastinum: Unremarkable. No cardiomegaly. Bones/joints: Unremarkable. IMPRESSION: 1. Findings in the left hemithorax likely due to previous surgery. 2. Possible focal infiltrate in the right lower lobe. Follow-up recommended.
--- NOTE | 2020-11-05 13:16 | CR ---
PROCEDURE INFORMATION: Exam: XR Left Hip with Pelvis when Performed Exam date and time: 11/05/2020 12:46 PM Age: 79 years old Clinical indication: Other: Pain; Additional info: Fall x3 weeks ago, pain, unable to stand TECHNIQUE: Imaging protocol: XR Left hip with pelvis when performed. Views: 2 or 3 views. COMPARISON: No relevant prior studies available. FINDINGS: Bones/joints: Unremarkable. No acute fracture. Soft tissues: Unremarkable. IMPRESSION: No acute findings.
[2020-11-05] MEDS ORDERED: Iopamidol 755 Mg/ML 100 ML Bottle IVPUSH ONE (13:31)
[2020-11-05] MEDS ORDERED: fentaNYL 100 MCG/2 ML SDV IVPUSH ONE (13:40)
--- NOTE | 2020-11-05 14:46 | CT ---
PROCEDURE INFORMATION: Exam: CT Chest With Contrast; Diagnostic Exam date and time: 11/05/2020 1:55 PM Age: 79 years old Clinical indication: Other: Pe protocol--d-dimer 508; Additional info: Covid positive, elevated d dimer TECHNIQUE: Imaging protocol: Diagnostic computed tomography of the chest with intravenous contrast. Radiation optimization: All CT scans at this facility use at least one of these dose optimization techniques: automated exposure control; mA and/or kV adjustment per patient size (includes targeted exams where dose is matched to clinical indication); or iterative reconstruction. Contrast material: [id number]; Contrast volume: 84 ml; Contrast route: INTRAVENOUS (IV); COMPARISON: CT Chest wo Cont 10/19/2019 11:05 AM FINDINGS: Lungs: Extensive consolidation/ground-glass opacities throughout the right lung and left lower lobe with prominent "honeycombing". No discrete soft tissue mass or nodule observed. Pleural space: Unremarkable. No pneumothorax. No pleural effusion. Heart: Unremarkable. No cardiomegaly. No pericardial effusion. Aorta: Unremarkable. No aortic aneurysm. Lymph nodes: Mediastinal adenopathy most likely reactive. Bones/joints: Unremarkable. No acute fracture. Soft tissues: Moderate-sized hiatus hernia. IMPRESSION: 1. Multi lobar pneumonitis compatible with COVID-19 infection. 2. No definite evidence of acute PE. 3. Mediastinal lymphadenopathy most likely reactive. 4. Moderate-sized hiatus hernia.
--- NOTE | 2020-11-05 15:50 | PCM.HP ---
H&P History of Present Illness - General Date of Service: 11/05/20 Admit Problem/Dx: Admission Diagnosis/Problem Admission Diagnosis/Problem Pneumonia Source of Information: Patient, EMS Notes Reviewed History Limitations: Reports: No Limitations - History of Present Illness Initial Comments - Free Text/Narative: Mr. Travis a 79 y.o.male with past medical history of HTN, HL, DM, CHF, COPD, former smoking, hx of lung CA s/p resection, Diabetes , CAD with stent SLIME, hx of EtOH abuse with prior pancreatitis, BPH and chronic GERD, dysphagia.with improvement with Botox injections before, but againprogressive without wt loss with dysphagia to solids and some liquids with some odynophagia with foods, but rare regurgitations. He was admitted at [facility] in june 2020 se en by GI and had botox injection and doing well now Today he presents to ER per [facility] with complaint of increased shortness of breath and left hip pain. Patient states he was diagnosed with pneumonia approximately 3 weeks ago, was tested for Covid at that time and that was negative. Also states he slipped and fell on the ice approximately 3 weeks ago and has been having some left left hip pain , today he was unable to get up on his own. Having a productive sputum with cough, sputum is thick yellow. Chest pains and some shortness of breath. No vomiting but does complain of nausea. States he has had diarrhea. States he had blood in the stool 1 time last week, bright red blood. States he has had a temp at home 99-99.5, chills. States he has been using Tylenol and ibuprofen quite frequently for the pain. Pt tested for COVID today ( 11/05/20) and he was posi tive. Pt had CT chest with contrast and negative for PE and showed Multilobar pneumonia compatible with COVID-19 infection and Mediastinal Lymphadenopathy most likely reactive Left Hip Pain Score (Numeric/FACES): 1 - Related Data Allergies/Adverse Reactions: Allergies Allergy/AdvReac Type Severity Reaction Status Date / Time morphine Allergy Severe Difficulty Verified 11/05/20 12:01 Breathing amoxicillin [Amoxicillin] Allergy Diarrhea Verified 11/05/20 12:01 doxycycline Allergy Rash Verified 11/05/20 12:01 gabapentin Allergy Cannot Verified 11/05/20 12:01 Remember oxycodone Allergy Confusion Verified 11/05/20 12:01 tiotropium bromide Allergy Cannot Verified 11/05/20 12:01 [From [facility] with Remember HandiHaler] Home Medications: Home Meds Acetaminophen [Tylenol Extra Strength] 1,000 mg PO BID PRN 03/08/14 [History] Albuterol [Proventil] 2.5 mg NEB BID PRN 03/08/14 [History] Albuterol [Ventolin HFA] 2 puff INH Q6H PRN 03/08/14 [History] Aspirin [Ecotrin EC] 81 mg PO DAILY 03/08/14 [History] Atenolol [Tenormin] 50 mg PO DAILY 03/08/14 [History] Fish Oil/Hume-3 Fatty Acids [Fish Oil 1,000 MG] 1 gm PO BID 03/08/14 [History] Furosemide [Lasix] 60 mg PO DAILY 03/08/14 [History] Nitroglycerin [Nitrostat] 0.4 mg SL ASDIRECTED PRN 03/08/14 [History] Omeprazole 20 mg PO DAILY 03/08/14 [History] Potassium Chloride [Klor-Con] 40 meq PO BID 03/08/14 [History] Simvastatin [Zocor] 10 mg PO BEDTIME 03/08/14 [History] Tamsulosin [Flomax] 0.4 mg PO DAILY 03/08/14 [History] Finasteride 5 mg PO DAILY 04/04/15 [History] Mometasone/Formoterol [Dulera 200-5 MCG] 1 puff INH ASDIRECTED 04/04/15 [History] rOPINIRole [Requip] 0.5 mg PO DAILY 04/04/15 [History] Insulin Glarg,Human.Rec.Analog [Lantus] 16 units SQ BEDTIME 11/05/20 [History] Past Medical History HEENT History: Reports: Hard of Hearing, Impaired Vision Other HEENT History: bilateral hearing aids, glasses Cardiovascular History: Reports: High Cholesterol, Hypertension, Stents Respiratory History: Reports: Bronchitis, Recurrent, COPD, Pneumonia, Recurrent, SOB, Other (See Below) Other Respiratory History: lung mass/lung cancer, left upper lobectomy Gastrointestinal History: Reports: GERD, Pancreatitis Other Gastrointestinal History: duodenal ulcer disease Other Genitourinary History: BPH Musculoskeletal History: Reports: Arthritis, Fracture Other Musculoskeletal History: ankle arthroscopy, intercostal neuralgia Neurological History: Reports: Other (See Below) Other Neuro History: intercostal neuralgia Psychiatric History: Reports: Anxiety Endocrine/Metabolic History: Reports: Diabetes, Type II Hematologic History: Reports: None Immunologic History: Reports: None Oncologic (Cancer) History: Reports: Lung Dermatologic History: Reports: None - Infectious Disease History Infectious Disease History: Reports: Chicken Pox, Measles, Mumps - Past Surgical History Head Surgeries/Procedures: Reports: None HEENT Surgical History: Reports: Adenoidectomy, Cataract Surgery, Tonsillectomy, Other (See Below) Other HEENT Surgeries/Procedures: bilat hearing aides Cardiovascular Surgical History: Reports: Coronary Artery Stent, Other (See Below) Other Cardiovascular Surgeries/Procedures: times three Respiratory Surgical History: Reports: Other (See Below) Other Respiratory Surgeries/Procedures: part of left lung removed for CA GI Surgical History: Reports: Cholecystectomy, Colonoscopy, EGD Male Surgical History: Reports: Other (See Below) Other Male Surgeries/Procedures: prostate surgery? Social & Family History - Family History Family Medical History: No Pertinent Family History Cardiac: Reports: Hypertension, SD - Tobacco Use Tobacco Use Status *Q: Former Tobacco User Used Tobacco, but Quit: Yes Month/Year Tobacco Last Used: 20 years ago - Caffeine Use Caffeine Use: Reports: Coffee - Recreational Drug Use Recreational Drug Use: No H&P Review of Systems - Review of Systems: Review Of Systems: See Below General: Reports: Weakness, Fatigue. Denies: Fever, Chills HEENT: Denies: Dysphasia, Headaches, Hearing Changes, Sore Throat, Visual Changes Pulmonary: Reports: Shortness of Breath, Cough, Sputum Cardiovascular: Reports: Dyspnea on Exertion. Denies: Chest Pain, Lightheadedness Gastrointestinal: Reports: Diarrhea. Denies: Abdominal Pain, Difficulty Swallowing, Nausea, Vomiting Genitourinary: Denies: Dysuria, Burning, Urgency Musculoskeletal: Denies: Shoulder Pain, Joint Swelling, Muscle Stiffness Skin: Denies: Cyanosis, Jaundice, Bruising, Pruritis, Rash Psychiatric: Denies: Confusion, Anxiety, Agitation Neurological: Denies: Confusion, Numbness, Tingling, Tremors Hematologic/Lymphatic: Reports: No Symptoms Immunologic: Reports: No Symptoms Exam - Exam Exam: See Below - Vital Signs Vital Signs: Last Vital Signs Temp 37.0 C 11/05/20 15:19 Pulse 81 11/05/20 15:19 Resp 22 H 11/05/20 15:19 BP 154/78 H 11/05/20 15:19 Pulse Ox 91 L 11/05/20 15:19 Weight: 106.594 kg - Exam Quality Assessment: Supplemental Oxygen, DVT Prophylaxis. No: Urinary Catheter General: Alert, Oriented, Cooperative HEENT: Conjunctiva Clear, Hearing Intact, Mucosa Moist & Mooar, Pupils Equal Neck: Supple. No: Lymphadenopathy, JVD, Thyromegaly Lungs: Clear to Auscultation, Normal Respiratory Effort, Decreased Breath Sounds, Crackles Cardiovascular: Regular Rate, Regular Rhythm, Systolic Murmur GI/Abdominal Exam: Normal Bowel Sounds, Soft, Non-Tender, No Distention (Male) Exam: Deferred Rectal (Males) Exam: Deferred Extremities: Normal Inspection, No Pedal Edema Skin: Warm, Dry, Intact Neurological: Cranial Nerves Intact, Reflexes Equal Bilateral Neuro Extensive - Mental Status: Alert, Oriented x3, Normal Mood/Affect Neuro Extensive - Motor, Sensory, Reflexes: CN II-XII Intact, Normal Gait, Normal Reflexes Psychiatric: Alert, Normal Affect, Normal Mood - Patient Data Lab Results Last 24 hrs: Laboratory Results - last 24 hr 11/05/20 11/05/20 11/05/20 Range/Units 10:54 10:54 10:54 WBC 3.8 L (5.0-10.0) 10^3/uL RBC 4.08 L (4.6-6.2) 10^6/uL Hgb 13.1 L (14.0-18.0) g/dL Hct 38.4 L (40.0-54.0) % MCV 94.1 (80-100) fL MCH 32.1 (27.0-34.0) pg MCHC 34.1 (33.0-35.0) g/dL Plt Count 134 L (150-450) 10^3/uL Neut % (Auto) 63.5 (42.2-75.2) % Lymph % (Auto) 31.2 (20.5-50.1) % Logan % (Auto) 4.5 (2-8) % Eos % (Auto) 0.8 L (1.0-3.0) % Baso % (Auto) 0.0 (0.0-1.0) % PT 10.0 (9.0-12.0) SEC INR 1.1 (0.9-1.2) D-Dimer, Quantitative 501 H (0-400) ng/mL Sodium 137 (136-145) mmol/L Potassium 3.7 (3.5-5.1) mmol/L Chloride 103 (98-107) mmol/L Carbon Dioxide 26 (21-32) mmol/L Anion Gap 11.7 (7-13) mEq/L BUN 12 (7-18) mg/dL Creatinine 0.91 (0.70-1.30) mg/dL Est Cr Clr Drug Dosing 69.88 mL/min Estimated GFR (MDRD) > 60 BUN/Creatinine Ratio 13.2 (No establ ref range) Glucose 114 H (74-99) mg/dL Lactic Acid (0.4-2.0) mmol/L Calcium 7.7 L (8.5-10.1) mg/dL Magnesium 1.9 (1.8-2.4) mg/dL Total Bilirubin 0.4 (0.2-1.0) mg/dL AST 30 (15-37) U/L ALT 31 (16-63) U/L Alkaline Phosphatase 74 (46-116) U/L Lactate Dehydrogenase 231 H (85-227) U/L Troponin I 0.019 (0.000-0.056) ng/mL C-Reactive Protein 4.1 H (0.0-0.9) mg/dL B-Natriuretic Peptide 53 (0-100) pg/ml Total Protein 5.5 L (6.4-8.2) g/dL Albumin 2.5 L (3.4-5.0) g/dL Globulin 3.0 Albumin/Globulin Ratio 0.83 Salicylates (2.8-20(Therapeutic)) mg/dL Acetaminophen (10-30 (Therapeutic)) ug/mL SARS-CoV-2 RNA (PAWEL) (NEGATIVE) 11/05/20 11/05/20 11/05/20 Range/Units 10:54 10:54 10:54 WBC (5.0-10.0) 10^3/uL RBC (4.6-6.2) 10^6/uL Hgb (14.0-18.0) g/dL Hct (40.0-54.0) % MCV (80-100) fL MCH (27.0-34.0) pg MCHC (33.0-35.0) g/dL Plt Count (150-450) 10^3/uL Neut % (Auto) (42.2-75.2) % Lymph % (Auto) (20.5-50.1) % Logan % (Auto) (2-8) % Eos % (Auto) (1.0-3.0) % Baso % (Auto) (0.0-1.0) % PT (9.0-12.0) SEC INR (0.9-1.2) D-Dimer, Quantitative (0-400) ng/mL Sodium (136-145) mmol/L Potassium (3.5-5.1) mmol/L Chloride (98-107) mmol/L Carbon Dioxide (21-32) mmol/L Anion Gap (7-13) mEq/L BUN (7-18) mg/dL Creatinine (0.70-1.30) mg/dL Est Cr Clr Drug Dosing mL/min Estimated GFR (MDRD) BUN/Creatinine Ratio (No establ ref range) Glucose (74-99) mg/dL Lactic Acid 0.9 (0.4-2.0) mmol/L Calcium (8.5-10.1) mg/dL Magnesium (1.8-2.4) mg/dL Total Bilirubin (0.2-1.0) mg/dL AST (15-37) U/L ALT (16-63) U/L Alkaline Phosphatase (46-116) U/L Lactate Dehydrogenase (85-227) U/L Troponin I (0.000-0.056) ng/mL C-Reactive Protein (0.0-0.9) mg/dL B-Natriuretic Peptide (0-100) pg/ml Total Protein (6.4-8.2) g/dL Albumin (3.4-5.0) g/dL Globulin Albumin/Globulin Ratio Salicylates < 2.8 L (2.8-20(Therapeutic)) mg/dL Acetaminophen 14 (10-30 (Therapeutic)) ug/mL SARS-CoV-2 RNA (PAWEL) (NEGATIVE) 11/05/20 Range/Units 11:10 WBC (5.0-10.0) 10^3/uL RBC (4.6-6.2) 10^6/uL Hgb (14.0-18.0) g/dL Hct (40.0-54.0) % MCV (80-100) fL MCH (27.0-34.0) pg MCHC (33.0-35.0) g/dL Plt Count (150-450) 10^3/uL Neut % (Auto) (42.2-75.2) % Lymph % (Auto) (20.5-50.1) % Logan % (Auto) (2-8) % Eos % (Auto) (1.0-3.0) % Baso % (Auto) (0.0-1.0) % PT (9.0-12.0) SEC INR (0.9-1.2) D-Dimer, Quantitative (0-400) ng/mL Sodium (136-145) mmol/L Potassium (3.5-5.1) mmol/L Chloride (98-107) mmol/L Carbon Dioxide (21-32) mmol/L Anion Gap (7-13) mEq/L BUN (7-18) mg/dL Creatinine (0.70-1.30) mg/dL Est Cr Clr Drug Dosing mL/min Estimated GFR (MDRD) BUN/Creatinine Ratio (No establ ref range) Glucose (74-99) mg/dL Lactic Acid (0.4-2.0) mmol/L Calcium (8.5-10.1) mg/dL Magnesium (1.8-2.4) mg/dL Total Bilirubin (0.2-1.0) mg/dL AST (15-37) U/L ALT (16-63) U/L Alkaline Phosphatase (46-116) U/L Lactate Dehydrogenase (85-227) U/L Troponin I (0.000-0.056) ng/mL C-Reactive Protein (0.0-0.9) mg/dL B-Natriuretic Peptide (0-100) pg/ml Total Protein (6.4-8.2) g/dL Albumin (3.4-5.0) g/dL Globulin Albumin/Globulin Ratio Salicylates (2.8-20(Therapeutic)) mg/dL Acetaminophen (10-30 (Therapeutic)) ug/mL SARS-CoV-2 RNA (PAWEL) Positive H (NEGATIVE) Result Diagrams: 11/05/20 10:54 11/05/20 10:54 Cl Results Last 24 hrs: Microbiology 11/05/20 11:15 Stool Occult Blood (CL) - Final Stool / Feces - Problem List (1) Generalized weakness SNOMED Code(s): 58597951 ICD Code: R53.1 - WEAKNESS Status: Acute Current Visit: No (2) Hypoxemia SNOMED Code(s): 976785187 ICD Code: R09.02 - HYPOXEMIA Status: Acute Current Visit: No (3) Left hip pain SNOMED Code(s): 31688738 ICD Code: M25.552 - PAIN IN LEFT HIP Status: Acute Current Visit: No (4) Pneumonia due to COVID-19 virus SNOMED Code(s): 024013468104315776 ICD Code: U07.1 - COVID-19; J12.89 - OTHER VIRAL PNEUMONIA Status: Acute Current Visit: No Problem List Initiated/Reviewed/Updated: Yes Orders Last 24hrs: Active Orders 24 hr Category Date Time Status Admission Diagnosis [ADT] Stat ADT 11/05/20 14:51 Ordered Patient Status [ADT] Routine ADT 11/05/20 14:51 Active CULTURE BLOOD [BC] Stat Lab 11/05/20 10:54 Received CULTURE BLOOD [BC] Stat Lab 11/05/20 10:59 Received UA W/CL RFLX IF INDICATED [URIN] Stat Lab 11/05/20 10:29 Ordered Blood Culture x2 Reflex Set [OM.PC] Stat Oth 11/05/20 10:29 Ordered Assessment/Plan Comment:: Mr. Travis a 79 y.o.male with past medical history of HTN, HL, DM, CHF, COPD, former smoking, hx of lung CA s/p resection, Diabetes , CAD with stent SLIME, hx of EtOH abuse with prior pancreatitis, BPH and chronic GERD, dysphag ia.with improvement with Botox injections before, but againprogressive without wt loss with dysphagia to solids and some liquids with some odynophagia with foods, but rare regurgitations. He was admitted at [facility] in june 2020 seen by GI and had botox injection and doing well now Today he presents to ER per [facility] with complaint of increased shortness of breath and left hip pain. Patient states he was diagnosed with pneumonia approximately 3 weeks ago, was tested for Covid at that time and that was negative. Also states he slipped and fell on the ice approximately 3 weeks ago and has been having some left left hip pain , today he was unable to get up on his own. Having a productive sputum with cough, sputum is thick yellow. Chest pains and some shortness of breath. No vomiting but does complain of nausea. States he has had diarrhea. States he had blood in the stool 1 time last week, bright red blood. States he has had a temp at home 99-99.5, chills. States he has been using Tylenol and ibuprofen quite frequently for the pain. Pt tested for COVID today ( 11/05/20) and he was positive. Pt had CT chest with contrast and negative for PE and showed Multilobar pneumonia compatible with COVID-19 infection and Mediastinal Lymphadenopathy most likely reactive Impression and Plan: 1. Acute hypoxemic respiratory failure secondary to to Covid 19 pneumonia Supplement oxygen as needed 2. Covid 19 pneumonia symptoms started on 11/02/20 Positive covid 19 screen on 11/05/20 associated with GI ( diarrhea) and pulmonary symptoms -He is on [facility] home oxygen 2.5 L but now 4 L with o2 sat 92% -LFT, Renal fx. Is good will -treat with Remdesivir 11/05 start date Dexamethasone start date 11/05 - Will order Plasma and will give once available 3. Acute COPD exacerbation Start albuterol scheduled and as needed Start Dulera 4. evaluate for concurrent bacterial infections Follow pro-calcitonin levels In the meantime hold Abx 5 Ddimer is low , continue DVT prophylaxis SQ Heparin I spoke with patient and provided information about Remdesevir treatment as being under emergency use authorization (EUA) and not fully FDA approved or reviewed. I discussed potential side effects including liver abnormalities. Also discussed other potential treatment options that are currently not FDA approved to treat COVID-19. Patient gives permission for Remdesevir. I also discussed risks and benefits of Plasma Tx re: covid 5. Diabetes II: continue Insulin 6. Hypertension: BP acceptable continue Atenolol DVT prophylaxis: Heparin 5000 unit TID Code Status: Full Code
[2020-11-05] MEDS ORDERED: REMDESIVIR 200 MG in Sodium Chloride 0.9% 250 ML IV ONE (16:53)
[2020-11-05] MEDS ORDERED: Docusate Sodium 100 MG Cap PO PRN (17:05)
[2020-11-05] MEDS: cefTRIAXone 2 GM in Sodium Chloride 0.9% 100 ML IV SCH (17:38)
[2020-11-05] MEDS: Acetaminophen 325 MG Tab PO PRN ×2 (17:43→21:54)
[2020-11-05] MEDS ORDERED: Heparin Sodium 5,000 Units/ML Vial SUBCUT SCH (18:00)
[2020-11-05] MEDS ORDERED: Melatonin 3 MG Tab PO PRN (18:27)
[2020-11-05] MEDS: Azithromycin 500 MG in Sodium Chloride 0.9% 250 ML IV SCH (19:08)
[2020-11-05] MEDS: Sodium Chloride 0.9% 10 ML Syringe FLUSH PRN ×3 (20:43→20:45)
[2020-11-05] MEDS: Heparin Sodium 5,000 Units/ML Vial SUBCUT SCH (21:55)
[2020-11-06] MEDS: Acetaminophen 325 MG Tab PO PRN ×3 (03:18→22:00)
[2020-11-06] MEDS: Heparin Sodium 5,000 Units/ML Vial SUBCUT SCH ×3 (05:58→22:03)
[2020-11-06 06:48] LABS: CHLORIDE,CL 103 mmol/L (98-107); SODIUM,NA 138 mmol/L (136-145)
[2020-11-06] MEDS: REMDESIVIR 100 MG in Sodium Chloride 0.9% 100 ML IV SCH (09:43)
[2020-11-06] MEDS: Sodium Chloride 0.9% 10 ML Syringe FLUSH PRN ×3 (09:44→18:23)
[2020-11-06] MEDS: Dexamethasone 6 MG TABLET PO SCH (09:44)
--- NOTE | 2020-11-06 10:06 | CR ---
PROCEDURE INFORMATION: Exam: XR Chest, 1 View Exam date and time: 11/06/2020 9:45 AM Age: 79 years old Clinical indication: Other: Respiratory failure, covid positive TECHNIQUE: Imaging protocol: XR of the chest Views: 1 view. COMPARISON: CT Chest w Cont, Chest w Cont 11/05/2020 1:55 PM FINDINGS: Lungs: Bilateral mild central and moderate bilateral lower lobe ground-glass opacities. Opacification appears to predominate at the left lung base. Mild vascular congestion Pleural space: Unremarkable. No pleural effusion. No pneumothorax. Heart/Mediastinum: Unremarkable. No cardiomegaly. Bones/joints: Unremarkable. IMPRESSION: Bilateral central and lower lobe ground-glass infiltrates, predominating at the left lung base compatible with pneumonitis.
[2020-11-06] MEDS ORDERED: 50% Dextrose in Water 50 ML Syringe IV PRN ×2 (10:14→10:15)
[2020-11-06] MEDS ORDERED: Glucagon,Human Recombinant 1 MG Vial IM PRN ×2 (10:14→10:15)
[2020-11-06] MEDS ORDERED: Albuterol 6.7 GM Inhaler INH PRN (10:15)
--- NOTE | 2020-11-06 10:42 | PCM.PN ---
- General Info Date of Service: 11/06/20 Admission Dx/Problem (Free Text): Admission Diagnosis/Problem Admission Diagnosis/Problem Pneumonia Subjective Update: 79-year-old with a history of hypertension, diabetes, CHF, COPD, diabetes, coronary artery disease, dysphasia. History of fall, left hip pain for about 3 weeks. Presented with shortness of breath. Shortness of breath is associated with cough with thick sputum. Low-grade fever. Has been taking Tylenol and ibuprofen for the hip pain. On admission the patient is positive for Covid. Admitted with multilobar bilateral pneumonia as it was seen on CT. Overnight the patient has been on oxygen. Reports continued cough with sputum. Associated shortness of breath has improved. Had low-grade fever with temperature maximum 100.7 No chest pain. No abdominal pain. - Patient Data Vitals - Most Recent: Last Vital Signs Temp 99 F 11/06/20 09:38 Pulse 90 11/06/20 09:38 Resp 22 H 11/06/20 09:38 BP 121/63 11/06/20 09:38 Pulse Ox 93 L 11/06/20 09:38 Weight - Most Recent: 236 lb 6.4 oz I&O - Last 24 Hours: Intake & Output 11/05/20 11/06/20 11/06/20 22:59 06:59 14:59 Intake Total 1100 400 Output Total 300 Balance 800 400 Lab Results Last 24 Hours: Laboratory Results - last 24 hr 11/05/20 11/05/20 11/05/20 Range/Units 10:54 10:54 10:54 WBC 3.8 L (5.0-10.0) 10^3/uL RBC 4.08 L (4.6-6.2) 10^6/uL Hgb 13.1 L (14.0-18.0) g/dL Hct 38.4 L (40.0-54.0) % MCV 94.1 (80-100) fL MCH 32.1 (27.0-34.0) pg MCHC 34.1 (33.0-35.0) g/dL Plt Count 134 L (150-450) 10^3/uL Neut % (Auto) 63.5 (42.2-75.2) % Lymph % (Auto) 31.2 (20.5-50.1) % Ida % (Auto) 4.5 (2-8) % Eos % (Auto) 0.8 L (1.0-3.0) % Baso % (Auto) 0.0 (0.0-1.0) % PT 10.0 (9.0-12.0) SEC INR 1.1 (0.9-1.2) D-Dimer, Quantitative 501 H (0-400) ng/mL Sodium 137 (136-145) mmol/L Potassium 3.7 (3.5-5.1) mmol/L Chloride 103 (98-107) mmol/L Carbon Dioxide 26 (21-32) mmol/L Anion Gap 11.7 (7-13) mEq/L BUN 12 (7-18) mg/dL Creatinine 0.91 (0.70-1.30) mg/dL Est Cr Clr Drug Dosing 69.88 mL/min Estimated GFR (MDRD) > 60 BUN/Creatinine Ratio 13.2 (No establ ref range) Glucose 114 H (74-99) mg/dL POC Glucose (83-110) mg/dl Lactic Acid (0.4-2.0) mmol/L Calcium 7.7 L (8.5-10.1) mg/dL Magnesium 1.9 (1.8-2.4) mg/dL Total Bilirubin 0.4 (0.2-1.0) mg/dL Direct Bilirubin (0.0-0.2) mg/dL AST 30 (15-37) U/L ALT 31 (16-63) U/L Alkaline Phosphatase 74 (46-116) U/L Lactate Dehydrogenase 231 H (85-227) U/L Troponin I 0.019 (0.000-0.056) ng/mL C-Reactive Protein 4.1 H (0.0-0.9) mg/dL B-Natriuretic Peptide 53 (0-100) pg/ml Total Protein 5.5 L (6.4-8.2) g/dL Albumin 2.5 L (3.4-5.0) g/dL Globulin 3.0 Albumin/Globulin Ratio 0.83 Urine Color (YELLOW) Urine Appearance (CLEAR) Urine pH (5.0-9.0) Ur Specific [place] (1.005-1.030) Urine Protein (NEGATIVE) Urine Glucose (UA) (NEGATIVE) Urine Ketones (NEGATIVE) Urine Occult Blood (NEGATIVE) Urine Nitrite (NEGATIVE) Urine Bilirubin (NEGATIVE) Urine Urobilinogen (0.2-1.0) mg/dL Ur Leukocyte Esterase (NEGATIVE) Urine RBC /HPF Urine WBC (0-5/HPF) /HPF Ur Epithelial Cells (NOT SEEN) /HPF Salicylates (2.8-20(Therapeutic)) mg/dL Acetaminophen (10-30 (Therapeutic)) ug/mL SARS-CoV-2 RNA (PAWEL) (NEGATIVE) Blood Type 11/05/20 11/05/20 11/05/20 Range/Units 10:54 10:54 10:54 WBC (5.0-10.0) 10^3/uL RBC (4.6-6.2) 10^6/uL Hgb (14.0-18.0) g/dL Hct (40.0-54.0) % MCV (80-100) fL MCH (27.0-34.0) pg MCHC (33.0-35.0) g/dL Plt Count (150-450) 10^3/uL Neut % (Auto) (42.2-75.2) % Lymph % (Auto) (20.5-50.1) % Ida % (Auto) (2-8) % Eos % (Auto) (1.0-3.0) % Baso % (Auto) (0.0-1.0) % PT (9.0-12.0) SEC INR (0.9-1.2) D-Dimer, Quantitative (0-400) ng/mL Sodium (136-145) mmol/L Potassium (3.5-5.1) mmol/L Chloride (98-107) mmol/L Carbon Dioxide (21-32) mmol/L Anion Gap (7-13) mEq/L BUN (7-18) mg/dL Creatinine (0.70-1.30) mg/dL Est Cr Clr Drug Dosing mL/min Estimated GFR (MDRD) BUN/Creatinine Ratio (No establ ref range) Glucose (74-99) mg/dL POC Glucose (83-110) mg/dl Lactic Acid 0.9 (0.4-2.0) mmol/L Calcium (8.5-10.1) mg/dL Magnesium (1.8-2.4) mg/dL Total Bilirubin (0.2-1.0) mg/dL Direct Bilirubin (0.0-0.2) mg/dL AST (15-37) U/L ALT (16-63) U/L Alkaline Phosphatase (46-116) U/L Lactate Dehydrogenase (85-227) U/L Troponin I (0.000-0.056) ng/mL C-Reactive Protein (0.0-0.9) mg/dL B-Natriuretic Peptide (0-100) pg/ml Total Protein (6.4-8.2) g/dL Albumin (3.4-5.0) g/dL Globulin Albumin/Globulin Ratio Urine Color (YELLOW) Urine Appearance (CLEAR) Urine pH (5.0-9.0) Ur Specific [place] (1.005-1.030) Urine Protein (NEGATIVE) Urine Glucose (UA) (NEGATIVE) Urine Ketones (NEGATIVE) Urine Occult Blood (NEGATIVE) Urine Nitrite (NEGATIVE) Urine Bilirubin (NEGATIVE) Urine Urobilinogen (0.2-1.0) mg/dL Ur Leukocyte Esterase (NEGATIVE) Urine RBC /HPF Urine WBC (0-5/HPF) /HPF Ur Epithelial Cells (NOT SEEN) /HPF Salicylates < 2.8 L (2.8-20(Therapeutic)) mg/dL Acetaminophen 14 (10-30 (Therapeutic)) ug/mL SARS-CoV-2 RNA (PAWEL) (NEGATIVE) Blood Type 11/05/20 11/05/20 11/05/20 Range/Units 10:54 11:10 16:51 WBC (5.0-10.0) 10^3/uL RBC (4.6-6.2) 10^6/uL Hgb (14.0-18.0) g/dL Hct (40.0-54.0) % MCV (80-100) fL MCH (27.0-34.0) pg MCHC (33.0-35.0) g/dL Plt Count (150-450) 10^3/uL Neut % (Auto) (42.2-75.2) % Lymph % (Auto) (20.5-50.1) % Ida % (Auto) (2-8) % Eos % (Auto) (1.0-3.0) % Baso % (Auto) (0.0-1.0) % PT (9.0-12.0) SEC INR (0.9-1.2) D-Dimer, Quantitative (0-400) ng/mL Sodium (136-145) mmol/L Potassium (3.5-5.1) mmol/L Chloride (98-107) mmol/L Carbon Dioxide (21-32) mmol/L Anion Gap (7-13) mEq/L BUN (7-18) mg/dL Creatinine (0.70-1.30) mg/dL Est Cr Clr Drug Dosing mL/min Estimated GFR (MDRD) BUN/Creatinine Ratio (No establ ref range) Glucose (74-99) mg/dL POC Glucose 97 (83-110) mg/dl Lactic Acid (0.4-2.0) mmol/L Calcium (8.5-10.1) mg/dL Magnesium (1.8-2.4) mg/dL Total Bilirubin (0.2-1.0) mg/dL Direct Bilirubin (0.0-0.2) mg/dL AST (15-37) U/L ALT (16-63) U/L Alkaline Phosphatase (46-116) U/L Lactate Dehydrogenase (85-227) U/L Troponin I (0.000-0.056) ng/mL C-Reactive Protein (0.0-0.9) mg/dL B-Natriuretic Peptide (0-100) pg/ml Total Protein (6.4-8.2) g/dL Albumin (3.4-5.0) g/dL Globulin Albumin/Globulin Ratio Urine Color (YELLOW) Urine Appearance (CLEAR) Urine pH (5.0-9.0) Ur Specific [place] (1.005-1.030) Urine Protein (NEGATIVE) Urine Glucose (UA) (NEGATIVE) Urine Ketones (NEGATIVE) Urine Occult Blood (NEGATIVE) Urine Nitrite (NEGATIVE) Urine Bilirubin (NEGATIVE) Urine Urobilinogen (0.2-1.0) mg/dL Ur Leukocyte Esterase (NEGATIVE) Urine RBC /HPF Urine WBC (0-5/HPF) /HPF Ur Epithelial Cells (NOT SEEN) /HPF Salicylates (2.8-20(Therapeutic)) mg/dL Acetaminophen (10-30 (Therapeutic)) ug/mL SARS-CoV-2 RNA (PAWEL) Positive H (NEGATIVE) Blood Type A POSITIVE 11/05/20 11/05/20 11/06/20 Range/Units 17:00 20:29 05:50 WBC (5.0-10.0) 10^3/uL RBC (4.6-6.2) 10^6/uL Hgb (14.0-18.0) g/dL Hct (40.0-54.0) % MCV (80-100) fL MCH (27.0-34.0) pg MCHC (33.0-35.0) g/dL Plt Count (150-450) 10^3/uL Neut % (Auto) (42.2-75.2) % Lymph % (Auto) (20.5-50.1) % Ida % (Auto) (2-8) % Eos % (Auto) (1.0-3.0) % Baso % (Auto) (0.0-1.0) % PT (9.0-12.0) SEC INR (0.9-1.2) D-Dimer, Quantitative (0-400) ng/mL Sodium 138 (136-145) mmol/L Potassium 4.0 (3.5-5.1) mmol/L Chloride 103 (98-107) mmol/L Carbon Dioxide 26 (21-32) mmol/L Anion Gap 13.0 (7-13) mEq/L BUN 10 (7-18) mg/dL Creatinine 1.00 (0.70-1.30) mg/dL Est Cr Clr Drug Dosing 63.59 mL/min Estimated GFR (MDRD) > 60 BUN/Creatinine Ratio 10.0 (No establ ref range) Glucose 113 H (74-99) mg/dL POC Glucose 115 H (83-110) mg/dl Lactic Acid (0.4-2.0) mmol/L Calcium 7.4 L (8.5-10.1) mg/dL Magnesium (1.8-2.4) mg/dL Total Bilirubin 0.4 (0.2-1.0) mg/dL Direct Bilirubin 0.1 (0.0-0.2) mg/dL AST 25 (15-37) U/L ALT 26 (16-63) U/L Alkaline Phosphatase 70 (46-116) U/L Lactate Dehydrogenase 217 (85-227) U/L Troponin I (0.000-0.056) ng/mL C-Reactive Protein (0.0-0.9) mg/dL B-Natriuretic Peptide (0-100) pg/ml Total Protein 4.7 L (6.4-8.2) g/dL Albumin 2.4 L (3.4-5.0) g/dL Globulin 2.3 Albumin/Globulin Ratio 1.04 Urine Color Yellow (YELLOW) Urine Appearance Clear (CLEAR) Urine pH 7.5 (5.0-9.0) Ur Specific [place] 1.015 (1.005-1.030) Urine Protein Negative (NEGATIVE) Urine Glucose (UA) Negative (NEGATIVE) Urine Ketones Negative (NEGATIVE) Urine Occult Blood Trace-intact H (NEGATIVE) Urine Nitrite Negative (NEGATIVE) Urine Bilirubin Negative (NEGATIVE) Urine Urobilinogen 0.2 (0.2-1.0) mg/dL Ur Leukocyte Esterase Negative (NEGATIVE) Urine RBC 0-5 /HPF Urine WBC 0-5 (0-5/HPF) /HPF Ur Epithelial Cells Few (NOT SEEN) /HPF Salicylates (2.8-20(Therapeutic)) mg/dL Acetaminophen (10-30 (Therapeutic)) ug/mL SARS-CoV-2 RNA (PAWEL) (NEGATIVE) Blood Type 11/06/20 11/06/20 11/06/20 Range/Units 05:50 05:50 07:56 WBC 5.2 (5.0-10.0) 10^3/uL RBC 3.75 L (4.6-6.2) 10^6/uL Hgb 12.0 L (14.0-18.0) g/dL Hct 35.6 L (40.0-54.0) % MCV 94.9 (80-100) fL MCH 32.0 (27.0-34.0) pg MCHC 33.7 (33.0-35.0) g/dL Plt Count 145 L (150-450) 10^3/uL Neut % (Auto) 66.2 (42.2-75.2) % Lymph % (Auto) 28.2 (20.5-50.1) % Ida % (Auto) 5.2 (2-8) % Eos % (Auto) 0.2 L (1.0-3.0) % Baso % (Auto) 0.2 (0.0-1.0) % PT (9.0-12.0) SEC INR (0.9-1.2) D-Dimer, Quantitative 537 H (0-400) ng/mL Sodium (136-145) mmol/L Potassium (3.5-5.1) mmol/L Chloride (98-107) mmol/L Carbon Dioxide (21-32) mmol/L Anion Gap (7-13) mEq/L BUN (7-18) mg/dL Creatinine (0.70-1.30) mg/dL Est Cr Clr Drug Dosing mL/min Estimated GFR (MDRD) BUN/Creatinine Ratio (No establ ref range) Glucose (74-99) mg/dL POC Glucose 109 (83-110) mg/dl Lactic Acid (0.4-2.0) mmol/L Calcium (8.5-10.1) mg/dL Magnesium (1.8-2.4) mg/dL Total Bilirubin (0.2-1.0) mg/dL Direct Bilirubin (0.0-0.2) mg/dL AST (15-37) U/L ALT (16-63) U/L Alkaline Phosphatase (46-116) U/L Lactate Dehydrogenase (85-227) U/L Troponin I (0.000-0.056) ng/mL C-Reactive Protein (0.0-0.9) mg/dL B-Natriuretic Peptide (0-100) pg/ml Total Protein (6.4-8.2) g/dL Albumin (3.4-5.0) g/dL Globulin Albumin/Globulin Ratio Urine Color (YELLOW) Urine Appearance (CLEAR) Urine pH (5.0-9.0) Ur Specific [place] (1.005-1.030) Urine Protein (NEGATIVE) Urine Glucose (UA) (NEGATIVE) Urine Ketones (NEGATIVE) Urine Occult Blood (NEGATIVE) Urine Nitrite (NEGATIVE) Urine Bilirubin (NEGATIVE) Urine Urobilinogen (0.2-1.0) mg/dL Ur Leukocyte Esterase (NEGATIVE) Urine RBC /HPF Urine WBC (0-5/HPF) /HPF Ur Epithelial Cells (NOT SEEN) /HPF Salicylates (2.8-20(Therapeutic)) mg/dL Acetaminophen (10-30 (Therapeutic)) ug/mL SARS-CoV-2 RNA (PAWEL) (NEGATIVE) Blood Type Cl Results Last 24 Hours: Microbiology 11/05/20 11:15 Stool Occult Blood (CL) - Final Stool / Feces Med Orders - Current: Current Medications Acetaminophen (Tylenol) 650 mg PO Q4H PRN PRN Reason: Fever Greater Than 101 Last Admin: 11/06/20 09:44 Dose: 650 mg Documented by: Albuterol (Proventil Hfa) 0 gm INH Q6H PRN PRN Reason: Wheezing Albuterol (Proventil Hfa) 0 gm INH QID [facility] Aspirin (Halfprin) 81 mg PO DAILY TITO Atenolol (Tenormin) 50 mg PO DAILY [facility] Dexamethasone (Dexamethasone) 6 mg PO DAILY [facility] Stop: 11/15/20 09:01 Last Admin: 11/06/20 09:44 Dose: 6 mg Documented by: Dextrose/Water (Dextrose 50% In Water) 50 ml IV ASDIRECTED PRN PRN Reason: Hypoglycemia Docusate Sodium (Colace) 100 mg PO DAILY PRN PRN Reason: Constipation Finasteride (Proscar) 5 mg PO DAILY TITO Furosemide (Lasix) 60 mg PO DAILY [facility] Glucagon (Glucagen) 1 mg IM ASDIRECTED PRN PRN Reason: Hypoglycemia Heparin Sodium (Porcine) (Heparin Sodium) 5,000 units SUBCUT Q8H [facility] Last Admin: 11/06/20 05:58 Dose: 5,000 units Documented by: Remdesivir 100 mg/ Sodium (Chloride) 100 mls @ 100 mls/hr IV Q24H [facility] Stop: 11/09/20 09:59 Last Admin: 11/06/20 09:43 Dose: 100 mls/hr Documented by: Ceftriaxone Sodium 2 gm/ (Sodium Chloride) 100 mls @ 200 mls/hr IV Q24H [facility] Last Admin: 11/05/20 17:38 Dose: 200 mls/hr Documented by: Azithromycin 500 mg/ Sodium (Chloride) 250 mls @ 250 mls/hr IV Q24H [facility] Last Infusion: 11/05/20 20:25 Dose: Infused Documented by: Insulin Glargine (Lantus) 16 unit SUBCUT BEDTIME [facility] Insulin Human Lispro (Humalog) 0 unit SUBCUT TIDMEALS [facility]; Protocol Melatonin (Melatonin) 3 mg PO BEDTIME PRN PRN Reason: Sleep Mometasone Furoate/Formoterol Fumar (Dulera 200-5 Mcg) 1 puff IH BID [facility] Omeprazole (Omeprazole) 20 mg PO ACBREAKFAST [facility] Potassium Chloride (Klor-Con 10) 40 meq PO BID [facility] Ropinirole HCl (Requip) 0.5 mg PO BEDTIME PRN PRN Reason: Pain Simvastatin (Zocor) 10 mg PO BEDTIME [facility] Sodium Chloride (Saline Flush) 10 ml FLUSH ASDIRECTED PRN PRN Reason: IV Use Last Admin: 11/06/20 09:44 Dose: 10 ml Documented by: Tamsulosin HCl (Flomax) 0.4 mg PO DAILY TITO Discontinued Medications Fentanyl (Sublimaze) 100 mcg IVPUSH ONETIME ONE Stop: 11/05/20 13:41 Last Admin: 11/05/20 13:53 Dose: 100 mcg Documented by: Heparin Sodium (Porcine) (Heparin Sodium) 5,000 units SUBCUT Q8H [facility]ITO Remdesivir 200 mg/ Sodium (Chloride) 250 mls @ 250 mls/hr IV ONETIME ONE Stop: 11/05/20 17:52 Last Infusion: 11/05/20 19:07 Dose: Infused Documented by: Iopamidol (Isovue-370 (76%)) 100 ml IVPUSH ONETIME ONE Stop: 11/05/20 13:32 Last Admin: 11/05/20 13:53 Dose: 100 ml Documented by: - Exam Quality Assessment: Supplemental Oxygen General: Alert, Oriented Neck: Supple Lungs: Normal Respiratory Effort, Decreased Breath Sounds, Wheezing Cardiovascular: Regular Rate, Regular Rhythm GI/Abdominal Exam: Normal Bowel Sounds, Soft, Non-Tender Extremities: Pedal Edema (trace b/l) Sepsis Event Note - Evaluation Sepsis Screening Result: Sepsis Risk - Focused Exam Vital Signs: Vital Signs Temp Pulse Resp BP Pulse Ox 11/06/20 09:38 99 F 90 22 H 121/63 93 L 11/06/20 06:02 99.2 F 73 20 96 11/06/20 03:12 100.1 F 72 20 125/71 94 L - Problem List & Annotations (1) Diabetes SNOMED Code(s): 69225962 Code(s): E11.9 - TYPE 2 DIABETES MELLITUS WITHOUT COMPLICATIONS Status: Acute Current Visit: Yes (2) CAD (coronary artery disease) SNOMED Code(s): 33314057 Code(s): I25.10 - ATHSCL HEART DISEASE OF [place] CORONARY ARTERY W/O ANG PCTRS Status: Acute Current Visit: Yes (3) HTN (hypertension) SNOMED Code(s): 42841285 Code(s): I10 - ESSENTIAL (PRIMARY) HYPERTENSION Status: Acute Current Visit: Yes (4) COPD (chronic obstructive pulmonary disease) SNOMED Code(s): 89906645 Code(s): J44.9 - CHRONIC OBSTRUCTIVE PULMONARY DISEASE, UNSPECIFIED Status: Acute Current Visit: No (5) Pneumonia due to COVID-19 virus SNOMED Code(s): 121957555622438018 Code(s): U07.1 - COVID-19; J12.89 - OTHER VIRAL PNEUMONIA Status: Acute Current Visit: No - Problem List Review Problem List Initiated/Reviewed/Updated: Yes - My Orders Last 24 Hours: My Active Orders 11/06/20 10:13 Glucose [Blood Glucose Check, Bedside] [RC] QIDACANDBED 11/06/20 10:14 Dextrose 50% in Water 50 ml IV ASDIRECTED PRN Glucagon,Human Recombinant [GlucaGen] 1 mg IM ASDIRECTED PRN 11/06/20 10:15 Albuterol [Proventil HFA] 0 gm INH Q6H PRN 11/06/20 10:17 RT Post Treatment Assessment [RC] Click to Edit RT Pre-Treatment Assessment [RC] Click to Edit 11/06/20 10:18 Activity as Tolerated [RC] .Routine 11/06/20 10:30 RT Post Treatment Assessment [RC] Click to Edit RT Pre-Treatment Assessment [RC] Click to Edit Mometasone/Formoterol [Dulera 200-5 MCG] 1 puff IH BID 11/06/20 12:00 Insulin Lispro [HumaLOG] See Protocol SUBCUT TIDMEALS 11/06/20 13:00 Albuterol [Proventil HFA] 6.7 gm INH QID 11/06/20 21:00 Insulin Glarg,Human.Rec.Analog [LantUS] 16 unit SUBCUT BEDTIME Potassium Chloride [Klor-Con 10] 40 meq PO BID Simvastatin [Zocor] 10 mg PO BEDTIME rOPINIRole [Requip] 0.5 mg PO BEDTIME PRN 11/07/20 05:15 BASIC METABOLIC PANEL,BMP [CHEM] AM 11/07/20 06:00 Omeprazole 20 mg PO ACBREAKFAST 11/07/20 09:00 Aspirin [Halfprin] 81 mg PO DAILY Finasteride [Proscar] 5 mg PO DAILY Furosemide [Lasix] 60 mg PO DAILY Tamsulosin [Flomax] 0.4 mg PO DAILY atenoloL [Tenormin] 50 mg PO DAILY - Plan Plan:: 79-year-old with a history of hypertension, diabetes, CHF, COPD, diabetes, coronary artery disease, dysphasia. History of fall, left hip pain for about 3 weeks. Presented with shortness of breath. Shortness of breath is associated with cough with thick sputum. Low-grade fever. Has been taking Tylenol and ibuprofen for the hip pain. On admission the patient is positive for Covid. Admitted with multilobar bilateral pneumonia as it was seen on CT. Overnight the patient has been on oxygen. Reports continued cough with sputum. Associated shortness of breath has improved. Had low-grade fever with temperature maximum 100.7 No chest pain. No abdominal pain. 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 Is good treat with Remdesivir : yes 11/05- Dexamethasone yes 11/05- Plasma yes Pending evaluate for concurrent bacterial infections pro-calcitonin level: pending In the meantime started on rocephin, azithro Ddimer: mildly elevated DVT prophylaxis sq heparin Thrombocytopenia Mild Will follow h/o DM resume lantus Monitor blood sugars before meals and at night Supplement insulin as needed COPD treat with dulera Add albuterol inh scheduled and as needed Htn/CAD/edema Treat with atenolol, Zocor Cont Lasix, K supplement d/w dr. Rubio
[2020-11-06] MEDS: Formoterol/Mometasone 200-5 MCG 8.8 GM Inhaler IH SCH ×2 (11:09→21:57)
[2020-11-06] MEDS: Insulin Lispro 100 Units/ML 3 ML Vial SUBCUT SCH ×2 (12:04→16:36)
[2020-11-06] MEDS: Albuterol 6.7 GM Inhaler INH SCH ×3 (13:37→21:57)
[2020-11-06] MEDS: cefTRIAXone 2 GM in Sodium Chloride 0.9% 100 ML IV SCH (16:33)
[2020-11-06 17:40] LABS: CHLORIDE,CL 101 mmol/L (98-107); SODIUM,NA 136 mmol/L (136-145)
[2020-11-06] MEDS: Azithromycin 500 MG in Sodium Chloride 0.9% 250 ML IV SCH (18:23)
[2020-11-06] MEDS ORDERED: rOPINIRole 0.25 MG Tab PO PRN (21:00)
[2020-11-06] MEDS: Insulin Glarg,Human.Rec.Analog 100 Unit/ML SUBCUT SCH (21:59)
[2020-11-06] MEDS: Potassium Chloride 10 MEQ Tab.ER PO SCH (22:00)
[2020-11-06] MEDS: Simvastatin 10 MG Tab PO SCH (22:02)
[2020-11-07] MEDS: Heparin Sodium 5,000 Units/ML Vial SUBCUT SCH ×3 (06:12→21:32)
[2020-11-07] MEDS: Omeprazole 20 MG Cap.CR PO SCH (06:13)
[2020-11-07 06:45] LABS: ANION GAP 14.2 mEq/L (7-13); CHLORIDE,CL 103 mmol/L (98-107); SODIUM,NA 137 mmol/L (136-145)
[2020-11-07] MEDS: REMDESIVIR 100 MG in Sodium Chloride 0.9% 100 ML IV SCH (08:12)
[2020-11-07] MEDS: Aspirin 81 MG Tab.EC PO SCH (08:16)
[2020-11-07] MEDS: Finasteride 5 MG Tab PO SCH (08:16)
[2020-11-07] MEDS: Tamsulosin 0.4 MG Cap.ER PO SCH (08:16)
[2020-11-07] MEDS: Furosemide 40 MG Tab PO SCH (08:17)
[2020-11-07] MEDS: Atenolol 50 MG Tab PO SCH (08:17)
[2020-11-07] MEDS: Dexamethasone 6 MG TABLET PO SCH (08:17)
[2020-11-07] MEDS: Potassium Chloride 10 MEQ Tab.ER PO SCH ×2 (08:18→21:32)
[2020-11-07] MEDS: Formoterol/Mometasone 200-5 MCG 8.8 GM Inhaler IH SCH ×2 (08:22→21:31)
[2020-11-07] MEDS: Insulin Lispro 100 Units/ML 3 ML Vial SUBCUT SCH ×3 (09:58→17:02)
--- NOTE | 2020-11-07 10:47 | PCM.PN ---
- General Info Date of Service: 11/07/20 Admission Dx/Problem (Free Text): Admission Diagnosis/Problem Admission Diagnosis/Problem Pneumonia Subjective Update: 79-year-old with a history of hypertension, diabetes, CHF, COPD, diabetes, coronary artery disease, dysphasia. History of fall, left hip pain for about 3 weeks. Presented with shortness of breath. Shortness of breath is associated with cough with thick sputum. Low-grade fever. Has been taking Tylenol and ibuprofen for the hip pain. On admission the patient is positive for Covid. Admitted with multilobar bilateral pneumonia as it was seen on CT. Overnight the patient has been on oxygen. Normally the patient is on 2.5 L nasal cannula oxygen, overnight has been 3-4 L. Reports continued cough with sputum.blood tinged sputum noted. Associated shortness of breath has improved. no chills. No chest pain. No abdominal pain. Functional Status: Reports: Pain Controlled, Tolerating Diet - Review of Systems General: Reports: Weakness Pulmonary: Reports: Shortness of Breath, Hemoptysis Cardiovascular: Denies: Chest Pain Gastrointestinal: Denies: Abdominal Pain Genitourinary: Denies: Dysuria Psychiatric: Denies: Confusion - Patient Data Vitals - Most Recent: Last Vital Signs Temp 98.7 F 11/07/20 08:00 Pulse 79 11/07/20 08:17 Resp 20 11/07/20 08:00 BP 138/75 11/07/20 08:17 Pulse Ox 93 L 11/07/20 08:00 Weight - Most Recent: 234 lb 3.2 oz I&O - Last 24 Hours: Intake & Output 11/06/20 11/07/20 11/07/20 22:59 06:59 14:59 Intake Total 1064 400 Balance 1064 400 Lab Results Last 24 Hours: Laboratory Results - last 24 hr 11/06/20 11/06/20 11/06/20 Range/Units 05:50 12:02 16:32 WBC (5.0-10.0) 10^3/uL RBC (4.6-6.2) 10^6/uL Hgb (14.0-18.0) g/dL Hct (40.0-54.0) % MCV (80-100) fL MCH (27.0-34.0) pg MCHC (33.0-35.0) g/dL Plt Count (150-450) 10^3/uL Neut % (Auto) (42.2-75.2) % Lymph % (Auto) (20.5-50.1) % [place] % (Auto) (2-8) % Eos % (Auto) (1.0-3.0) % Baso % (Auto) (0.0-1.0) % D-Dimer, Quantitative (0-400) ng/mL Sodium (136-145) mmol/L Potassium (3.5-5.1) mmol/L Chloride (98-107) mmol/L Carbon Dioxide (21-32) mmol/L Anion Gap (7-13) mEq/L BUN (7-18) mg/dL Creatinine (0.70-1.30) mg/dL Est Cr Clr Drug Dosing mL/min Estimated GFR (MDRD) BUN/Creatinine Ratio (No establ ref range) Glucose (74-99) mg/dL POC Glucose 115 H 177 H (83-110) mg/dl Calcium (8.5-10.1) mg/dL Total Bilirubin (0.2-1.0) mg/dL AST (15-37) U/L ALT (16-63) U/L Alkaline Phosphatase (46-116) U/L Total Protein (6.4-8.2) g/dL Albumin (3.4-5.0) g/dL Globulin Albumin/Globulin Ratio Procalcitonin 0.20 H ng/mL 11/06/20 11/06/20 11/07/20 Range/Units 17:10 21:51 06:15 WBC (5.0-10.0) 10^3/uL RBC (4.6-6.2) 10^6/uL Hgb (14.0-18.0) g/dL Hct (40.0-54.0) % MCV (80-100) fL MCH (27.0-34.0) pg MCHC (33.0-35.0) g/dL Plt Count (150-450) 10^3/uL Neut % (Auto) (42.2-75.2) % Lymph % (Auto) (20.5-50.1) % [place] % (Auto) (2-8) % Eos % (Auto) (1.0-3.0) % Baso % (Auto) (0.0-1.0) % D-Dimer, Quantitative 557 H (0-400) ng/mL Sodium 136 (136-145) mmol/L Potassium 4.0 (3.5-5.1) mmol/L Chloride 101 (98-107) mmol/L Carbon Dioxide 23 (21-32) mmol/L Anion Gap 16.0 H (7-13) mEq/L BUN 13 (7-18) mg/dL Creatinine 0.93 (0.70-1.30) mg/dL Est Cr Clr Drug Dosing 68.38 mL/min Estimated GFR (MDRD) > 60 BUN/Creatinine Ratio 14.0 (No establ ref range) Glucose 178 H (74-99) mg/dL POC Glucose 179 H (83-110) mg/dl Calcium 7.6 L (8.5-10.1) mg/dL Total Bilirubin 0.3 (0.2-1.0) mg/dL AST 31 (15-37) U/L ALT 30 (16-63) U/L Alkaline Phosphatase 72 (46-116) U/L Total Protein 5.1 L (6.4-8.2) g/dL Albumin 2.4 L (3.4-5.0) g/dL Globulin 2.7 Albumin/Globulin Ratio 0.89 Procalcitonin ng/mL 11/07/20 11/07/20 11/07/20 Range/Units 06:15 06:15 08:12 WBC 3.8 L (5.0-10.0) 10^3/uL RBC 4.02 L (4.6-6.2) 10^6/uL Hgb 13.0 L (14.0-18.0) g/dL Hct 37.3 L (40.0-54.0) % MCV 92.8 (80-100) fL MCH 32.3 (27.0-34.0) pg MCHC 34.9 (33.0-35.0) g/dL Plt Count 159 (150-450) 10^3/uL Neut % (Auto) 65.2 (42.2-75.2) % Lymph % (Auto) 26.4 (20.5-50.1) % [place] % (Auto) 8.1 H (2-8) % Eos % (Auto) 0.3 L (1.0-3.0) % Baso % (Auto) 0.0 (0.0-1.0) % D-Dimer, Quantitative (0-400) ng/mL Sodium 137 (136-145) mmol/L Potassium 4.2 (3.5-5.1) mmol/L Chloride 103 (98-107) mmol/L Carbon Dioxide 24 (21-32) mmol/L Anion Gap 14.2 H (7-13) mEq/L BUN 14 (7-18) mg/dL Creatinine 0.89 (0.70-1.30) mg/dL Est Cr Clr Drug Dosing 71.45 mL/min Estimated GFR (MDRD) > 60 BUN/Creatinine Ratio 15.7 (No establ ref range) Glucose 156 H (74-99) mg/dL POC Glucose 141 H (83-110) mg/dl Calcium 7.8 L (8.5-10.1) mg/dL Total Bilirubin 0.2 (0.2-1.0) mg/dL AST 24 (15-37) U/L ALT 25 (16-63) U/L Alkaline Phosphatase 63 (46-116) U/L Total Protein 5.2 L (6.4-8.2) g/dL Albumin 2.2 L (3.4-5.0) g/dL Globulin 3.0 Albumin/Globulin Ratio 0.73 Procalcitonin ng/mL Cl Results Last 24 Hours: Microbiology 11/05/20 10:59 Aerobic Blood Culture - Preliminary Blood - Venous - Lab Draw NO GROWTH AFTER 1 DAY Anaerobic Blood Culture - Preliminary NO GROWTH AFTER 1 DAY 11/05/20 10:54 Aerobic Blood Culture - Preliminary Blood - Venous NO GROWTH AFTER 1 DAY Anaerobic Blood Culture - Preliminary NO GROWTH AFTER 1 DAY Med Orders - Current: Current Medications Acetaminophen (Tylenol) 650 mg PO Q4H PRN PRN Reason: Fever Greater Than 101 Last Admin: 11/06/20 22:00 Dose: 650 mg Documented by: Albuterol (Proventil Hfa) 0 gm INH Q6H PRN PRN Reason: Wheezing Albuterol (Proventil Hfa) 0 gm INH QID [facility] Last Admin: 11/06/20 21:57 Dose: 2 puff Documented by: Aspirin (Halfprin) 81 mg PO DAILY [facility] Last Admin: 11/07/20 08:16 Dose: 81 mg Documented by: Atenolol (Tenormin) 50 mg PO DAILY [facility] Last Admin: 11/07/20 08:17 Dose: 50 mg Documented by: Dexamethasone (Dexamethasone) 6 mg PO DAILY [facility] Stop: 11/15/20 09:01 Last Admin: 11/07/20 08:17 Dose: 6 mg Documented by: Dextrose/Water (Dextrose 50% In Water) 50 ml IV ASDIRECTED PRN PRN Reason: Hypoglycemia Docusate Sodium (Colace) 100 mg PO DAILY PRN PRN Reason: Constipation Finasteride (Proscar) 5 mg PO DAILY [facility] Last Admin: 11/07/20 08:16 Dose: 5 mg Documented by: Furosemide (Lasix) 60 mg PO DAILY [facility] Last Admin: 11/07/20 08:17 Dose: 60 mg Documented by: Glucagon (Glucagen) 1 mg IM ASDIRECTED PRN PRN Reason: Hypoglycemia Heparin Sodium (Porcine) (Heparin Sodium) 5,000 units SUBCUT Q8H [facility] Last Admin: 11/07/20 06:12 Dose: 5,000 units Documented by: Remdesivir 100 mg/ Sodium (Chloride) 100 mls @ 100 mls/hr IV Q24H [facility] Stop: 11/09/20 09:59 Last Admin: 11/07/20 08:12 Dose: 100 mls/hr Documented by: Ceftriaxone Sodium 2 gm/ (Sodium Chloride) 100 mls @ 200 mls/hr IV Q24H [facility] Last Infusion: 11/06/20 17:21 Dose: Infused Documented by: Azithromycin 500 mg/ Sodium (Chloride) 250 mls @ 250 mls/hr IV Q24H [facility] Last Admin: 11/06/20 18:23 Dose: 250 mls/hr Documented by: Insulin Glargine (Lantus) 16 unit SUBCUT BEDTIME [facility] Last Admin: 11/06/20 21:59 Dose: 16 unit Documented by: Insulin Human Lispro (Humalog) 0 unit SUBCUT TIDMEALS [facility]; Protocol Last Admin: 11/07/20 09:58 Dose: Not Given Documented by: Melatonin (Melatonin) 3 mg PO BEDTIME PRN PRN Reason: Sleep Mometasone Furoate/Formoterol Fumar (Dulera 200-5 Mcg) 1 puff IH BID [facility] Last Admin: 11/07/20 08:22 Dose: 1 puff Documented by: Omeprazole (Omeprazole) 20 mg PO ACBREAKFAST [facility] Last Admin: 11/07/20 06:13 Dose: 20 mg Documented by: Potassium Chloride (Klor-Con 10) 40 meq PO BID [facility] Last Admin: 11/07/20 08:18 Dose: 40 meq Documented by: Ropinirole HCl (Requip) 0.5 mg PO BEDTIME PRN PRN Reason: Pain Simvastatin (Zocor) 10 mg PO BEDTIME [facility] Last Admin: 11/06/20 22:02 Dose: 10 mg Documented by: Sodium Chloride (Saline Flush) 10 ml FLUSH ASDIRECTED PRN PRN Reason: IV Use Last Admin: 11/06/20 18:23 Dose: 10 ml Documented by: Tamsulosin HCl (Flomax) 0.4 mg PO DAILY [facility] Last Admin: 11/07/20 08:16 Dose: 0.4 mg Documented by: Discontinued Medications Fentanyl (Sublimaze) 100 mcg IVPUSH ONETIME ONE Stop: 11/05/20 13:41 Last Admin: 11/05/20 13:53 Dose: 100 mcg Documented by: Heparin Sodium (Porcine) (Heparin Sodium) 5,000 units SUBCUT Q8H [facility] Remdesivir 200 mg/ Sodium (Chloride) 250 mls @ 250 mls/hr IV ONETIME ONE Stop: 11/05/20 17:52 Last Infusion: 11/05/20 19:07 Dose: Infused Documented by: Iopamidol (Isovue-370 (76%)) 100 ml IVPUSH ONETIME ONE Stop: 11/05/20 13:32 Last Admin: 11/05/20 13:53 Dose: 100 ml Documented by: - Exam Quality Assessment: Supplemental Oxygen General: Alert, Oriented Neck: Supple Lungs: Rhonchi (bilaterally) Cardiovascular: Regular Rate, Regular Rhythm GI/Abdominal Exam: Normal Bowel Sounds, Soft, Non-Tender Extremities: No Pedal Edema Skin: Warm, Dry Neurological: No New Focal Deficit Psy/Mental Status: Alert, Normal Affect, Normal Mood Sepsis Event Note - Evaluation Sepsis Screening Result: No Definite Risk - Focused Exam Vital Signs: Vital Signs Temp Pulse Pulse Resp BP BP BP 11/07/20 08:17 79 138/75 11/07/20 08:00 98.7 F 78 20 138/75 11/07/20 04:00 98.6 F 67 20 129/74 11/07/20 00:00 76 20 Pulse Ox 11/07/20 08:17 11/07/20 08:00 93 L 11/07/20 04:00 94 L 11/07/20 00:00 94 L - Problem List & Annotations (1) Diabetes SNOMED Code(s): 02986754 Code(s): E11.9 - TYPE 2 DIABETES MELLITUS WITHOUT COMPLICATIONS Status: Acute Current Visit: Yes (2) CAD (coronary artery disease) SNOMED Code(s): 41698672 Code(s): I25.10 - ATHSCL HEART DISEASE OF [place] CORONARY ARTERY W/O ANG PCTRS Status: Acute Current Visit: Yes (3) HTN (hypertension) SNOMED Code(s): 85010932 Code(s): I10 - ESSENTIAL (PRIMARY) HYPERTENSION Status: Acute Current Visit: Yes (4) COPD (chronic obstructive pulmonary disease) SNOMED Code(s): 45589830 Code(s): J44.9 - CHRONIC OBSTRUCTIVE PULMONARY DISEASE, UNSPECIFIED Status: Acute Current Visit: No (5) Pneumonia due to COVID-19 virus SNOMED Code(s): 128909604415213260 Code(s): U07.1 - COVID-19; J12.89 - OTHER VIRAL PNEUMONIA Status: Acute Current Visit: No - Problem List Review Problem List Initiated/Reviewed/Updated: Yes - My Orders Last 24 Hours: My Active Orders 11/06/20 10:13 Glucose [Blood Glucose Check, Bedside] [RC] QIDACANDBED 11/06/20 10:14 Dextrose 50% in Water 50 ml IV ASDIRECTED PRN Glucagon,Human Recombinant [GlucaGen] 1 mg IM ASDIRECTED PRN 11/06/20 10:15 Albuterol [Proventil HFA] 0 gm INH Q6H PRN 11/06/20 10:17 RT Post Treatment Assessment [RC] Click to Edit RT Pre-Treatment Assessment [RC] Click to Edit 11/06/20 10:18 Activity as Tolerated [RC] .Routine 11/06/20 10:30 RT Post Treatment Assessment [RC] Click to Edit RT Pre-Treatment Assessment [RC] Click to Edit Mometasone/Formoterol [Dulera 200-5 MCG] 1 puff IH BID 11/06/20 12:00 Insulin Lispro [HumaLOG] See Protocol SUBCUT TIDMEALS 11/06/20 13:00 Albuterol [Proventil HFA] 0 gm INH QID 11/06/20 21:00 Insulin Glarg,Human.Rec.Analog [LantUS] 16 unit SUBCUT BEDTIME Potassium Chloride [Klor-Con 10] 40 meq PO BID Simvastatin [Zocor] 10 mg PO BEDTIME rOPINIRole [Requip] 0.5 mg PO BEDTIME PRN 11/07/20 06:00 Omeprazole 20 mg PO ACBREAKFAST 11/07/20 09:00 Aspirin [Halfprin] 81 mg PO DAILY Finasteride [Proscar] 5 mg PO DAILY Furosemide [Lasix] 60 mg PO DAILY Tamsulosin [Flomax] 0.4 mg PO DAILY atenoloL [Tenormin] 50 mg PO DAILY - Plan Plan:: 79-year-old with a history of hypertension, diabetes, CHF, COPD, diabetes, co ronary artery disease, dysphasia. History of fall, left hip pain for about 3 weeks. Presented with shortness of breath. Shortness of breath is associated with cough with thick sputum. Low-grade fever. Has been taking Tylenol and ibuprofen for the hip pain. On admission the patient is positive for Covid. Admitted with multilobar bilateral pneumonia as it was seen on CT. Overnight the patient has been on oxygen. Reports continued cough with sputum. Associated shortness of breath has improved. Had low-grade fever with temperature maximum 100.7 No chest pain. No abdominal pain. Chronic hypoxemic respiratory failure secondary to Covid 19 pneumonia Oxygen saturation was 91% on presentation with 4 L nasal cannula oxygen Continue Supplement oxygen as needed Use albuterol scheduled and as needed use dulera MDI Covid 19 pneumonia symptoms started on Positive covid 19 screen on 05 November pulmonary symptoms, diarrhea cxr/CT : patchy pneumonia on 11/05 LFT, Renal fx. Is good treat with Remdesivir : yes 11/05- Dexamethasone yes 11/05- Plasma yes starting today 11/07 evaluate for concurrent bacterial infections pro-calcitonin level: pending In the meantime started on rocephin, azithro monitor for hemoptysis Ddimer: mildly elevated DVT prophylaxis sq heparin Thrombocytopenia Mild Will follow h/o DM resumed levemir Monitor blood sugars before meals and at night Supplement insulin as needed COPD treat with dulera albuterol inh scheduled and as needed Htn/CAD/edema Treat with atenolol, Zocor Cont Lasix, K supplement
--- NOTE | 2020-11-07 10:56 | CR ---
PROCEDURE INFORMATION: Exam: XR Chest, 1 View Exam date and time: 11/07/2020 8:44 AM Age: 79 years old Clinical indication: Condition or disease; Other: Covid+; Additional info: Respiratory failure TECHNIQUE: Imaging protocol: XR of the chest Views: 1 view. COMPARISON: CR Chest 1V Frontal 11/06/2020 9:45 AM FINDINGS: Lungs: Bilateral mixed interstitial, ground-glass and lung airspace opacification is unchanged. Opacification is more dense in the left lower lobe. Pleural space: Normal. Heart/Mediastinum: Normal heart and cardiomediastinal silhouette. Vasculature: Normal pulmonary vessel caliber. Normal aorta. Bones/joints: The bones are intact. IMPRESSION: Unchanged bilateral lung infiltrates/pneumonia.
[2020-11-07] MEDS: Albuterol 6.7 GM Inhaler INH SCH ×4 (11:34→21:33)
[2020-11-07] MEDS: cefTRIAXone 2 GM in Sodium Chloride 0.9% 100 ML IV SCH (17:08)
[2020-11-07] MEDS ORDERED: guaiFENesin/Dextromethorphan 100-10 MG/5 ML Soln 5 ML Cup PO PRN (17:11)
[2020-11-07] MEDS: Azithromycin 500 MG in Sodium Chloride 0.9% 250 ML IV SCH (17:59)
[2020-11-07] MEDS: Insulin Glarg,Human.Rec.Analog 100 Unit/ML SUBCUT SCH (21:30)
[2020-11-07] MEDS: Simvastatin 10 MG Tab PO SCH (21:32)
[2020-11-08] MEDS: Acetaminophen 325 MG Tab PO PRN (03:11)
[2020-11-08] MEDS: Heparin Sodium 5,000 Units/ML Vial SUBCUT SCH ×3 (06:07→21:48)
[2020-11-08] MEDS: Omeprazole 20 MG Cap.CR PO SCH (06:08)
[2020-11-08 06:40] LABS: ANION GAP 12.2 mEq/L (7-13); CHLORIDE,CL 104 mmol/L (98-107); SODIUM,NA 138 mmol/L (136-145)
[2020-11-08] MEDS: REMDESIVIR 100 MG in Sodium Chloride 0.9% 100 ML IV SCH (08:29)
[2020-11-08] MEDS: Furosemide 40 MG Tab PO SCH (08:30)
[2020-11-08] MEDS: Tamsulosin 0.4 MG Cap.ER PO SCH (08:30)
[2020-11-08] MEDS: Finasteride 5 MG Tab PO SCH (08:33)
[2020-11-08] MEDS: Aspirin 81 MG Tab.EC PO SCH (08:33)
[2020-11-08] MEDS: Potassium Chloride 10 MEQ Tab.ER PO SCH ×2 (08:33→21:43)
[2020-11-08] MEDS: Dexamethasone 6 MG TABLET PO SCH (08:33)
[2020-11-08] MEDS: Atenolol 50 MG Tab PO SCH (08:39)
[2020-11-08] MEDS: Formoterol/Mometasone 200-5 MCG 8.8 GM Inhaler IH SCH ×2 (08:46→21:42)
[2020-11-08] MEDS: Albuterol 6.7 GM Inhaler INH SCH ×4 (08:46→21:47)
[2020-11-08] MEDS: Insulin Lispro 100 Units/ML 3 ML Vial SUBCUT SCH ×3 (08:47→17:19)
--- NOTE | 2020-11-08 10:18 | PN ---
DATE: 11/08/2020 SUBJECTIVE: The patient is an 79-year-old male with past medical history of hypertension, diabetes mellitus, congestive heart failure, chronic obstructive pulmonary disease, history of lung cancer, status post resection. The patient was admitted with COVID pneumonia and hypoxemia. The patient received already the convalescent plasma and he is also currently on IV dexamethasone and also on Remdesivir as well as azithromycin and ceftriaxone IV. The patient is doing fairly well. He is feeling much better, although he still has some occasional desaturation with activity, but he denies any fever, chills, chest pain, or any other complaints. LABORATORY DATA: Lab workup this morning. CBC; WBC 7.3, hemoglobin is 13.6, hematocrit is 39.5, platelet is 210. D-dimer is 511. Comp panel; glucose is 128, calcium is 8.2, alkaline phosphatase of 6, albumin is 2.7. The rest of the panel unremarkable. OBJECTIVE: Vital Signs: Blood pressure is 141/77, pulse of 65, respirations of 20, temperature of 98, saturation is 91% on 3 L per nasal cannula. Heart: Regular rate and rhythm. Normal S1 and S2. No gallops. No rubs. Lungs: Diminished breath sounds on both bases, but no significant crackles. No wheezing. Abdomen: Obese, soft, nontender. Extremities: Negative for any significant pedal edema. No calf tenderness. MEDICATIONS: Reviewed. PLAN: We will continue with his present management, and if the patient continues to do well, anticipate discharge in a.m. [facility] /[id number]
--- NOTE | 2020-11-08 10:20 | CR ---
PROCEDURE INFORMATION: Exam: XR Chest, 1 View Exam date and time: 11/08/2020 9:34 AM Age: 79 years old Clinical indication: Other: Respiratory failure TECHNIQUE: Imaging protocol: XR of the chest Views: 1 view. COMPARISON: CR Chest 1V Frontal 11/07/2020 8:44 AM FINDINGS: Lungs: There are stable bilateral interstitial ground-glass airspace opacities within bilateral lower lobes predominating on the left. Pleural space: Unremarkable. No pleural effusion. No pneumothorax. Heart/Mediastinum: Unremarkable. No cardiomegaly. Bones/joints: Unremarkable. IMPRESSION: 1. Unchanged bilateral lung infiltrates compatible with pneumonitis.
[2020-11-08] MEDS: cefTRIAXone 2 GM in Sodium Chloride 0.9% 100 ML IV SCH (17:22)
[2020-11-08] MEDS: Azithromycin 500 MG in Sodium Chloride 0.9% 250 ML IV SCH (17:28)
[2020-11-08] MEDS: Insulin Glarg,Human.Rec.Analog 100 Unit/ML SUBCUT SCH (21:46)
[2020-11-08] MEDS: Simvastatin 10 MG Tab PO SCH (21:47)
[2020-11-09] MEDS: Omeprazole 20 MG Cap.CR PO SCH (06:33)
[2020-11-09] MEDS: Heparin Sodium 5,000 Units/ML Vial SUBCUT SCH (06:33)
[2020-11-09 07:56] LABS: CHLORIDE,CL 104 mmol/L (98-107); SODIUM,NA 139 mmol/L (136-145)
[2020-11-09] MEDS: REMDESIVIR 100 MG in Sodium Chloride 0.9% 100 ML IV SCH (08:01)
[2020-11-09] MEDS: Tamsulosin 0.4 MG Cap.ER PO SCH (08:04)
[2020-11-09] MEDS: Furosemide 40 MG Tab PO SCH (08:06)
[2020-11-09] MEDS: Potassium Chloride 10 MEQ Tab.ER PO SCH (08:10)
[2020-11-09] MEDS: Finasteride 5 MG Tab PO SCH (08:11)
[2020-11-09] MEDS: Aspirin 81 MG Tab.EC PO SCH (08:11)
[2020-11-09] MEDS: Formoterol/Mometasone 200-5 MCG 8.8 GM Inhaler IH SCH (08:12)
[2020-11-09] MEDS: Dexamethasone 6 MG TABLET PO SCH (08:12)
[2020-11-09] MEDS: Albuterol 6.7 GM Inhaler INH SCH (08:13)
[2020-11-09 08:18] VITALS: BP 115/64
[2020-11-09] MEDS: Atenolol 50 MG Tab PO SCH (08:19)
[2020-11-09 08:20] VITALS: PULSE 70
--- NOTE | 2020-11-09 09:07 | PN ---
DATE: 11/09/2020 SUBJECTIVE: The patient continues to do well and had a good night sleep and he mentioned that he is ready to go home today. He denies any worsening of shortness of breath, chest pain, fever, chills, abdominal pain, or any other complaints. LABORATORY DATA: Lab workup this morning, CBC; WBC 6.8, hemoglobin is 11.8, hematocrit is 34.7, platelets 202. OBJECTIVE: Vital Signs: Blood pressure is 123/78, pulse of 56, respirations of 20, temperature of 98.4, saturation is 93% on 3 L per nasal cannula. Heart: Regular rate and rhythm. No gallops. No rubs. Lungs: Diminished breath sounds on both bases. There is very mild expiratory wheeze, but no crackles. Abdomen: Obese, soft, nontender. Bowel sounds positive. Extremities: Negative for any pedal edema. No calf tenderness. MEDICATIONS: Reviewed. PLAN: We will discharge the patient home today and we will continue with oral azithromycin for the next 5 days and we will continue with oral dexamethasone for the next 7 days. We will resume his home medication and will also have home healthcare follow the patient and will have him follow up with Kathryn Oliver in about a week.Pt will also be referred to home health to monitior and asses pulmonaty function after covid infection. FREDRICK /[id number] MTDD
[2020-11-09] MEDS: Insulin Lispro 100 Units/ML 3 ML Vial SUBCUT SCH (09:29)
--- NOTE | 2020-11-09 12:12 | DISCH ---
FINAL DIAGNOSES: 1. Coronavirus disease pneumonia. 2. Hypoxemia. 3. Chronic obstructive pulmonary disease exacerbation. 4. Type 2 diabetes mellitus, on insulin. 5. Hypertension. BRIEF HISTORY OF PRESENT ILLNESS: The patient is an 79-year-old male with past medical history of hypertension, diabetes mellitus, CHF, COPD, history of lung cancer, status post resection, who was admitted with increasing shortness of breath with COVID pneumonia and hypoxemia. He was also complaining of left hip pain from previous fall, and an x-ray of the left hip did not show any acute findings. PERTINENT LAB, X-RAY, AND OTHER TESTS: CAT scan of the chest showed multilobar pneumonitis compatible with COVID-19 infection. There is no definite evidence of acute pulmonary embolism and there is some mediastinal lymphadenopathy, most likely reactive. An x-ray of the left hip is negative for any acute findings. CBC on admission: WBC is 3.8, hemoglobin is 13.1, hematocrit is 38.4, platelets are 134. INR is 1.1. Comp panel remarkable for glucose of 114 and the rest of the panel unremarkable. Aerobic and anaerobic cultures negative. Stool Hemoccult is negative. HOSPITAL COURSE: The patient was admitted to isolation acute medical floor and the patient was empirically started on IV antibiotics with azithromycin and ceftriaxone. He was also placed on oral dexamethasone and was given fresh frozen/convalescent plasma. He was also placed on heparin for DVT prophylaxis and was also given remdesivir. He was resumed on his home medication. The patient had a slow improvement and did well. Still had some episodes of desaturation while on oxygen, but this has slowly improved. The rest of the hospital course was unremarkable and he was subsequently discharged home and home health is going to follow the patient,to monitor and asses lung function after covid pneumonia. CONDITION ON DISCHARGE: Improved. LABORATORY WORKUP: On discharge, CBC: WBC 7.3, hemoglobin is 13.6, hematocrit is 39.5, platelets are 210. Comp panel: Glucose is 138, calcium is 8.2, total protein of 6, albumin is 2.7. The rest of the panel unremarkable. DISCHARGE MEDICATIONS: Azithromycin 250 mg daily for the next 5 days and dexamethasone 6 mg daily for the next 1 week. The patient is going to be resumed on his home medications including Requip, Lantus, albuterol, fluticasone, tamsulosin, simvastatin, potassium chloride, omeprazole, nitroglycerin, Lasix, finasteride, atenolol, and aspirin. [facility] /[id number] MTDD
--- NOTE | 2020-11-09 13:48 | DISCH ---
ADDENDUM: DISCHARGE PLAN: The patient is going to be referred to Home Health for monitoring and assessing respiratory status following COVID pneumonia hospitalization. [facility] /[id number]
== END 2020-11-09 10:15 | disposition home or self-care (01) | DRG 177 ==
LOC: DL.ED 10:40 → DL.MS 14:51 → DL.ED 15:06
PROVIDERS: ADMIT Internal Medicine Nephrology; ATTEND Internal Medicine
PROC: XW033E5 Introduction of Remdesivir Anti-infective into Peripheral Vein, Percutaneous Approach, New Technology Group 5 (ICD-10-PCS; principal; 2020-11-05)
DX: U07.1 COVID-19 (principal); J12.89 Other viral pneumonia; J96.21 Acute and chronic respiratory failure with hypoxia; J44.0 Chronic obstructive pulmonary disease with (acute) lower respiratory infection; J44.1 Chronic obstructive pulmonary disease with (acute) exacerbation; J43.9 Emphysema, unspecified; R53.1 Weakness; R13.10 Dysphagia, unspecified; M25.552 Pain in left hip; H91.90 Unspecified hearing loss, unspecified ear; W00.0XXA Fall on same level due to ice and snow, initial encounter; Z88.1 Allergy status to other antibiotic agents; I11.0 Hypertensive heart disease with heart failure; I50.9 Heart failure, unspecified; Z88.6 Allergy status to analgesic agent; Z88.8 Allergy status to other drugs, medicaments and biological substances; Z79.82 Long term (current) use of aspirin; Z79.899 Other long term (current) drug therapy; G47.33 Obstructive sleep apnea (adult) (pediatric); I25.10 Atherosclerotic heart disease of native coronary artery without angina pectoris; I25.2 Old myocardial infarction; H54.7 Unspecified visual loss; Z85.118 Personal history of other malignant neoplasm of bronchus and lung; Z88.5 Allergy status to narcotic agent; Z88.0 Allergy status to penicillin; H91.93 Unspecified hearing loss, bilateral; E78.00 Pure hypercholesterolemia, unspecified; Z79.4 Long term (current) use of insulin; I10 Essential (primary) hypertension; Z98.49 Cataract extraction status, unspecified eye; Z98.890 Other specified postprocedural states; Z95.5 Presence of coronary angioplasty implant and graft; Z90.2 Acquired absence of lung [part of]; K21.9 Gastro-esophageal reflux disease without esophagitis; N40.0 Benign prostatic hyperplasia without lower urinary tract symptoms; M19.90 Unspecified osteoarthritis, unspecified site; F41.9 Anxiety disorder, unspecified; E11.9 Type 2 diabetes mellitus without complications; Z87.891 Personal history of nicotine dependence
CPT/HCPCS: 36415; 36430; 71045; 71260; 80053; 80307; 81001; 82248; 82272; 82962; 83605; 83615; 83735; 83880; 84145; 84484; 85025; 85379; 85610; 86140; 86900; 86901; 87040; 93005; 96374; 99222; 99232; 99238; 99284; 99285-25; A9270-GY; J0456; J0696; J1644; J1815-GY; J3010; J7050; J8540; P9017; Q9967; U0002

== ENCOUNTER 2020-11-12 04:13 | Emergency (ER) | payer MEDICARE, OTHER ==
[2020-11-12 04:30] VITALS: BP 149/77; PULSE 70
[2020-11-12] MEDS ORDERED: Acetaminophen 325 MG Tab PO ONE (04:42)
--- NOTE | 2020-11-12 04:44 | EDM.PDOC ---
ED HPI GENERAL MEDICAL PROBLEM - General Chief Complaint: Respiratory Problem Stated Complaint: AMBULANCE Time Seen by Provider: 11/12/20 04:30 Source of Information: Reports: Patient, EMS, EMS Notes Reviewed, RN, RN Notes Reviewed History Limitations: Reports: No Limitations - History of Present Illness INITIAL COMMENTS - FREE TEXT/NARRATIVE: Patient is an 79-year-old male who presents to ER per [facility] with complaint of increased shortness of breath, left anterior/lateral chest pain, and headache. Patient states headache began about 25 minutes ago, j ust short time prior to arrival. Patient states history of CAD with 3 stents, history of lung cancer that is in remission at this time as it was removed from the left lung, and history of emphysema. Patient was tested for Covid last week and did test positive. Patient was hospitalized and discharged on . Patient lives at home alone. States home health was to come and see him but "never showed up". He states they are supposed to stop it is home tomorrow. Also states his stepdaughter is coming from [place] and moving him back with her to live. Patient states he is on oxygen at home at baseline. Onset: Gradual Left Anterior Chest Pain Score (Numeric/FACES): 2 - Related Data Allergies Allergy/AdvReac Type Severity Reaction Status Date / Time morphine Allergy Severe Difficulty Verified 11/12/20 04:25 Breathing amoxicillin [Amoxicillin] Allergy Diarrhea Verified 11/12/20 04:25 doxycycline Allergy Rash Verified 11/12/20 04:25 gabapentin Allergy Cannot Verified 11/12/20 04:25 Remember oxycodone Allergy Confusion Verified 11/12/20 04:25 tiotropium bromide Allergy Cannot Verified 11/12/20 04:25 [From [facility] with Remember Handi[facility]er] Home Meds: Home Meds Acetaminophen [Tylenol Extra Strength] 1,000 mg PO BID PRN 03/08/14 [History] Albuterol [Proventil Neb Soln] 2.5 mg NEB BID PRN 03/08/14 [History] Albuterol [Ventolin HFA] 2 puff INH Q6H PRN 03/08/14 [History] Aspirin [Ecotrin EC] 81 mg PO DAILY 03/08/14 [History] Atenolol [Tenormin] 50 mg PO DAILY 03/08/14 [History] Fish Oil/[place]-3 Fatty Acids [Fish Oil 1,000 MG] 1 gm PO BID 03/08/14 [History] Furosemide [Lasix] 60 mg PO DAILY 03/08/14 [History] Nitroglycerin [Nitrostat] 0.4 mg SL ASDIRECTED PRN 03/08/14 [History] Omeprazole 20 mg PO DAILY 03/08/14 [History] Potassium Chloride [Klor-Con] 40 meq PO BID 03/08/14 [History] Simvastatin [Zocor] 10 mg PO BEDTIME 03/08/14 [History] Tamsulosin [Flomax] 0.4 mg PO DAILY 03/08/14 [History] Finasteride 5 mg PO DAILY 04/04/15 [History] Mometasone/Formoterol [Dulera 200-5 MCG] 1 puff INH ASDIRECTED 04/04/15 [History] rOPINIRole [Requip] 0.5 mg PO BEDTIME PRN 04/04/15 [History] Insulin Glarg,Human.Rec.Analog [Lantus] 16 units SQ BEDTIME 11/05/20 [History] Fluticasone Propionate 1 spray NASBOTH DAILY 11/06/20 [History] Azithromycin 250 mg PO DAILY 5 Days #5 tablet 11/09/20 [Rx] dexAMETHasone [Dexamethasone] 6 mg PO DAILY 7 Days #7 tab 11/09/20 [Rx] Past Medical History HEENT History: Reports: Hard of Hearing, Impaired Vision Other HEENT History: bilateral hearing aids, glasses Cardiovascular History: Reports: High Cholesterol, Hypertension, Stents Respiratory History: Reports: Bronchitis, Recurrent, COPD, Pneumonia, Recurrent, SOB, Other (See Below) Other Respiratory History: lung mass/lung cancer, left upper lobectomy Gastrointestinal History: Reports: GERD, Pancreatitis Other Gastrointestinal History: duodenal ulcer disease Genitourinary History: Reports: BPH Other Genitourinary History: BPH Musculoskeletal History: Reports: Arthritis, Back Pain, Chronic, Fracture Other Musculoskeletal History: ankle arthroscopy, intercostal neuralgia Neurological History: Reports: Other (See Below) Other Neuro History: intercostal neuralgia Psychiatric History: Reports: Anxiety, Suicidal Ideation Endocrine/Metabolic History: Reports: Diabetes, Type II, Obesity/BMI 30+ Hematologic History: Reports: None Immunologic History: Reports: None Oncologic (Cancer) History: Reports: Lung Dermatologic History: Reports: None - Infectious Disease History Infectious Disease History: Reports: Chicken Pox, Measles, Mumps, Novel Coronavirus - Past Surgical History Head Surgeries/Procedures: Reports: None HEENT Surgical History: Reports: Adenoidectomy, Cataract Surgery, Tonsillectomy, Other (See Below) Other HEENT Surgeries/Procedures: bilat hearing aides Cardiovascular Surgical History: Reports: Coronary Artery Stent, Other (See Below) Other Cardiovascular Surgeries/Procedures: times three Respiratory Surgical History: Reports: Other (See Below) Other Respiratory Surgeries/Procedures: part of left lung removed for CA GI Surgical History: Reports: Cholecystectomy, Colonoscopy, EGD Male Surgical History: Reports: Other (See Below) Other Male Surgeries/Procedures: prostate surgery? Social & Family History - Family History Family Medical History: No Pertinent Family History Cardiac: Reports: Hypertension, [place] - Tobacco Use Tobacco Use Status *Q: Former Tobacco User Used Tobacco, but Quit: Yes Month/Year Tobacco Last Used: 27 yr ago - Caffeine Use Caffeine Use: Reports: Coffee - Recreational Drug Use Recreational Drug Use: No ED ROS GENERAL - Review of Systems Review Of Systems: Comprehensive ROS is negative, except as noted in HPI. ED EXAM, GENERAL - Physical Exam Exam: See Below Exam Limited By: No Limitations General Appearance: Alert, WD/WN, Mild Distress Eye Exam: Bilateral Eye: EOMI, Normal Inspection Ears: Normal External Exam, Hearing Grossly Normal Nose: Normal Inspection Throat/Mouth: Normal Inspection, Normal Voice, No Airway Compromise Head: Atraumatic, Normocephalic Neck: Normal Inspection, Supple, Non-Tender, Full Range of Motion Respiratory/Chest: No Respiratory Distress, No Accessory Muscle Use, Chest Non- Tender, Decreased Breath Sounds, Crackles (throughout) Cardiovascular: Normal Peripheral Pulses, No Edema, No Gallop, No JVD, No Murmur, No Rub, Irregularly Irregular Peripheral Pulses: 2+: Radial (L), Radial (R) GI/Abdominal: Normal Bowel Sounds, Soft, Non-Tender (Male) Exam: Deferred Rectal (Males) Exam: Deferred Back Exam: Normal Inspection, Decreased Range of Motion Extremities: Normal Inspection, Non-Tender, No Pedal Edema, Normal Capillary Refill, Limited Range of Motion Neurological: Alert, Oriented, CN II-XII Intact, Normal Cognition, No Motor/Sensory Deficits Psychiatric: Normal Affect, Normal Mood, Anxious Skin Exam: Warm, Dry, Intact, Normal Color, No Rash Lymphatic: No Adenopathy Course - Vital Signs Last Recorded V/S: Last Vital Signs Temp 97.5 F 11/12/20 04:26 Pulse 70 11/12/20 04:26 Resp 18 11/12/20 04:26 BP 149/77 H 11/12/20 04:26 Pulse Ox 94 L 11/12/20 04:26 - Orders/Labs/Meds Orders: Active Orders 24 hr Category Date Time Status EKG Documentation Completion [RC] STAT Care 11/12/20 04:13 Active CULTURE BLOOD [BC] Stat Lab 11/12/20 04:18 Received CULTURE BLOOD [BC] Stat Lab 11/12/20 05:20 Received Enoxaparin [Lovenox] Med 11/12/20 07:10 Once 100 mg SUBCUT ONETIME ONE Blood Culture x2 Reflex Set [OM.PC] Stat Oth 11/12/20 04:13 Ordered Labs: Laboratory Tests 11/12/20 11/12/20 11/12/20 Range/Units 04:18 04:18 04:18 WBC 9.4 (5.0-10.0) 10^3/uL RBC 4.48 L (4.6-6.2) 10^6/uL Hgb 14.2 D (14.0-18.0) g/dL Hct 41.0 (40.0-54.0) % MCV 91.5 (80-100) fL MCH 31.7 (27.0-34.0) pg MCHC 34.6 (33.0-35.0) g/dL Plt Count 275 (150-450) 10^3/uL Neut % (Auto) 83.3 H (42.2-75.2) % Lymph % (Auto) 10.1 L (20.5-50.1) % Rains % (Auto) 6.3 (2-8) % Eos % (Auto) 0.1 L (1.0-3.0) % Baso % (Auto) 0.2 (0.0-1.0) % Add Manual Diff Yes Neutrophils % (Manual) 76 H (42-75) % Band Neutrophils % 5 % Lymphocytes % (Manual) 12 L (20-50) % Monocytes % (Manual) 7 (2-8) % Atypical Lymphocytes Rare PT 10.9 (9.0-12.0) SEC INR 1.2 (0.9-1.2) D-Dimer, Quantitative > 5000 H (0-400) ng/mL Sodium 138 (136-145) mmol/L Potassium 3.9 (3.5-5.1) mmol/L Chloride 101 (98-107) mmol/L Carbon Dioxide 27 (21-32) mmol/L Anion Gap 13.9 H (7-13) mEq/L BUN 16 (7-18) mg/dL Creatinine 1.01 (0.70-1.30) mg/dL Est Cr Clr Drug Dosing 62.96 mL/min Estimated GFR (MDRD) > 60 BUN/Creatinine Ratio 15.8 (No establ ref range) Glucose 144 H (74-99) mg/dL Lactic Acid (0.4-2.0) mmol/L Calcium 8.3 L (8.5-10.1) mg/dL Magnesium 2.0 (1.8-2.4) mg/dL Total Bilirubin 0.9 (0.2-1.0) mg/dL AST 16 (15-37) U/L ALT 44 (16-63) U/L Alkaline Phosphatase 81 (46-116) U/L Troponin I 0.017 (0.000-0.056) ng/mL C-Reactive Protein 2.3 H (0.0-0.9) mg/dL B-Natriuretic Peptide 71 (0-100) pg/ml Total Protein 6.1 L (6.4-8.2) g/dL Albumin 2.8 L (3.4-5.0) g/dL Globulin 3.3 Albumin/Globulin Ratio 0.85 Urine Color (YELLOW) Urine Appearance (CLEAR) Urine pH (5.0-9.0) Ur Specific [place] (1.005-1.030) Urine Protein (NEGATIVE) Urine Glucose (UA) (NEGATIVE) Urine Ketones (NEGATIVE) Urine Occult Blood (NEGATIVE) Urine Nitrite (NEGATIVE) Urine Bilirubin (NEGATIVE) Urine Urobilinogen (0.2-1.0) mg/dL Ur Leukocyte Esterase (NEGATIVE) Urine RBC /HPF Urine WBC (0-5/HPF) /HPF Ur Epithelial Cells (NOT SEEN) /HPF Amorphous Sediment (NOT SEEN) /HPF Urine Bacteria (0-FEW/HPF) /HPF Urine Mucus (NOT SEEN) /LPF 01/03/21 01/03/21 Range/Units 04:18 04:45 WBC (5.0-10.0) 10^3/uL RBC (4.6-6.2) 10^6/uL Hgb (14.0-18.0) g/dL Hct (40.0-54.0) % MCV (80-100) fL MCH (27.0-34.0) pg MCHC (33.0-35.0) g/dL Plt Count (150-450) 10^3/uL Neut % (Auto) (42.2-75.2) % Lymph % (Auto) (20.5-50.1) % Rains % (Auto) (2-8) % Eos % (Auto) (1.0-3.0) % Baso % (Auto) (0.0-1.0) % Add Manual Diff Neutrophils % (Manual) (42-75) % Band Neutrophils % % Lymphocytes % (Manual) (20-50) % Monocytes % (Manual) (2-8) % Atypical Lymphocytes PT (9.0-12.0) SEC INR (0.9-1.2) D-Dimer, Quantitative (0-400) ng/mL Sodium (136-145) mmol/L Potassium (3.5-5.1) mmol/L Chloride (98-107) mmol/L Carbon Dioxide (21-32) mmol/L Anion Gap (7-13) mEq/L BUN (7-18) mg/dL Creatinine (0.70-1.30) mg/dL Est Cr Clr Drug Dosing mL/min Estimated GFR (MDRD) BUN/Creatinine Ratio (No establ ref range) Glucose (74-99) mg/dL Lactic Acid 2.0 (0.4-2.0) mmol/L Calcium (8.5-10.1) mg/dL Magnesium (1.8-2.4) mg/dL Total Bilirubin (0.2-1.0) mg/dL AST (15-37) U/L ALT (16-63) U/L Alkaline Phosphatase (46-116) U/L Troponin I (0.000-0.056) ng/mL C-Reactive Protein (0.0-0.9) mg/dL B-Natriuretic Peptide (0-100) pg/ml Total Protein (6.4-8.2) g/dL Albumin (3.4-5.0) g/dL Globulin Albumin/Globulin Ratio Urine Color Light yellow (YELLOW) Urine Appearance Clear (CLEAR) Urine pH 7.0 (5.0-9.0) Ur Specific [place] 1.025 (1.005-1.030) Urine Protein Negative (NEGATIVE) Urine Glucose (UA) Negative (NEGATIVE) Urine Ketones Negative (NEGATIVE) Urine Occult Blood Trace-intact H (NEGATIVE) Urine Nitrite Negative (NEGATIVE) Urine Bilirubin Negative (NEGATIVE) Urine Urobilinogen 0.2 (0.2-1.0) mg/dL Ur Leukocyte Esterase Negative (NEGATIVE) Urine RBC 0-5 /HPF Urine WBC 0-5 (0-5/HPF) /HPF Ur Epithelial Cells Rare (NOT SEEN) /HPF Amorphous Sediment Rare (NOT SEEN) /HPF Urine Bacteria Few (0-FEW/HPF) /HPF Urine Mucus Rare (NOT SEEN) /LPF Meds: Medications Discontinued Medications Generic Name Dose Route Start Last Admin Trade Name Don PRN Reason Stop Dose Admin Acetaminophen 650 mg 11/12/20 04:42 11/12/20 04:56 Tylenol PO 11/12/20 04:43 650 mg NOW ONE Administration Iopamidol 100 ml 11/12/20 05:45 11/12/20 06:06 Isovue-370 (76%) IVPUSH 11/12/20 05:46 100 ml ONETIME ONE Administration - Radiology Interpretation Free Text/Narrative:: Chest CT with contrast: PROCEDURE INFORMATION: Exam: CT Chest With Contrast; Diagnostic Exam date and time: 11/12/2020 6:16 AM Age: 79 years old Clinical indication: Other: Covid +; Additional info: Covid +, chest pain, d dimer >5000 TECHNIQUE: Imaging protocol: Diagnostic computed tomography of the chest with intravenous contrast. Radiation optimization: All CT scans at this facility use at least one of these dose optimization techniques: automated exposure control; mA and/or kV adjustment per patient size (includes targeted exams where dose is matched to clinical indication); or iterative reconstruction. Contrast material: ISOVUE 370; Contrast volume: 85 ml; Contrast route: INTRAVENOUS (IV); COMPARISON: CT Chest w Cont 11/05/2020 1:55 PM FINDINGS: Limitations: Motion related artifacts limit exam sensitivity. Lungs: Emphysema . There are extensive , progressive confluent and patchy regions of bilateral lung ground-glass opacification superimposed upon emphysematous lung changes. Pleural space: No pneumothorax. No significant pleural effusion. Heart: No cardiomegaly or pericardial fluid. Mediastinal space: Small hiatal hernia. Pulmonary arteries: The central and segmental pulmonary arteries are well opacified and are clear. There is a small filling defect within a subsegmental branch of the right lower lobe pulmonary artery (series 4, image 83). Aorta: Mild atherosclerotic changes of the aorta without aneurysmal dilation or dissection. Lymph nodes: Subcentimeter mediastinal lymph nodes are not pathologic by size. Gallbladder and bile ducts: Cholecystectomy. Pancreas: Coarse calcifications at the pancreatic head can be seen with chronic pancreatitis. Bones/joints: The vertebrae are normal in height and alignment without focal lesion. Mild degenerative changes noted. Soft tissues: Unremarkable. IMPRESSION: Small filling defect within a medial subsegmental pulmonary arterial branch of the right lower lobe is likely small thrombus. The pulmonary arteries are otherwise clear. Interval progressive confluent and patchy ground-glass opacities superimposed upon underlying emphysematous lung disease.Imaging features can be seen with COVID-19 pneumonia, though are nonspecific and can occur with a variety of infectious and noninfectious processes. (Reference: Daniel) References: Daniel S, et al., Radiological Society of [place] Expert Consensus Statement on Reporting Chest CT Findings Related to COVID-19. Endorsed by the Society of Thoracic Radiology, the [employer], and RSNA. Published February 02, 2020. Findings were discussed with Arti Gardiner NP at 11/12/2020 6:56 AM ADDICTIONS COUNSELOR ASSISTANT. Thank you for allowing us to participate in the care of your patient. Dictated and Authenticated by: Eleni Atwood MD 11/12/2020 6:57 AM Central Time ([place] & [place]) See rad report - Re-Assessments/Exams Free Text/Narrative Re-Assessment/Exam: 11/12/20 07:11 Discussed patient case with Dr. Sosa who requested the patient be transferred to [facility]. Discussed patient case with Dr. Mead who agreed to accept the patient for transfer to [facility]. Departure - Departure Time of Disposition: 07:12 Disposition: DC/Tfer to Acute Hospital 02 Condition: Fair Clinical Impression: Pulmonary embolism Qualifiers: Pulmonary embolism type: single subsegmental (without acute cor pulmonale) Qualified Code(s): I26.93 - Single subsegmental pulmonary embolism without acute cor pulmonale - Discharge Information *PRESCRIPTION DRUG MONITORING PROGRAM REVIEWED*: No *COPY OF PRESCRIPTION DRUG MONITORING REPORT IN PATIENT MARIANNE: No Forms: ED Department Discharge, Interfacility Transfer EMTALA Sepsis Event Note (ED) - Evaluation Sepsis Screening Result: No Definite Risk - Focused Exam Vital Signs: Vital Signs Temp Pulse Resp BP Pulse Ox 11/12/20 04:26 97.5 F 70 18 149/77 H 94 L - My Orders Last 24 Hours: My Active Orders 11/12/20 04:13 EKG Documentation Completion [RC] STAT Blood Culture x2 Reflex Set [OM.PC] Stat 11/12/20 04:18 CULTURE BLOOD [BC] Stat 11/12/20 05:20 CULTURE BLOOD [BC] Stat 11/12/20 07:10 Enoxaparin [Lovenox] 100 mg SUBCUT ONETIME ONE - Assessment/Plan Last 24 Hours: My Active Orders 11/12/20 04:13 EKG Documentation Completion [RC] STAT Blood Culture x2 Reflex Set [OM.PC] Stat 11/12/20 04:18 CULTURE BLOOD [BC] Stat 11/12/20 05:20 CULTURE BLOOD [BC] Stat 11/12/20 07:10 Enoxaparin [Lovenox] 100 mg SUBCUT ONETIME ONE
[2020-11-12 04:51] LABS: ANION GAP 13.9 mEq/L (7-13); CHLORIDE,CL 101 mmol/L (98-107); SODIUM,NA 138 mmol/L (136-145)
[2020-11-12] MEDS ORDERED: Iopamidol 755 Mg/ML 100 ML Bottle IVPUSH ONE (05:45)
--- NOTE | 2020-11-12 06:57 | CT ---
PROCEDURE INFORMATION: Exam: CT Chest With Contrast; Diagnostic Exam date and time: 11/12/2020 6:16 AM Age: 79 years old Clinical indication: Other: Covid +; Additional info: Covid +, chest pain, d dimer >5000 TECHNIQUE: Imaging protocol: Diagnostic computed tomography of the chest with intravenous contrast. Radiation optimization: All CT scans at this facility use at least one of these dose optimization techniques: automated exposure control; mA and/or kV adjustment per patient size (includes targeted exams where dose is matched to clinical indication); or iterative reconstruction. Contrast material: ISOVUE 370; Contrast volume: 85 ml; Contrast route: INTRAVENOUS (IV); COMPARISON: CT Chest w Cont 11/05/2020 1:55 PM FINDINGS: Limitations: Motion related artifacts limit exam sensitivity. Lungs: Emphysema . There are extensive , progressive confluent and patchy regions of bilateral lung ground-glass opacification superimposed upon emphysematous lung changes. Pleural space: No pneumothorax. No significant pleural effusion. Heart: No cardiomegaly or pericardial fluid. Mediastinal space: Small hiatal hernia. Pulmonary arteries: The central and segmental pulmonary arteries are well opacified and are clear. There is a small filling defect within a subsegmental branch of the right lower lobe pulmonary artery (series 4, image 83). Aorta: Mild atherosclerotic changes of the aorta without aneurysmal dilation or dissection. Lymph nodes: Subcentimeter mediastinal lymph nodes are not pathologic by size. Gallbladder and bile ducts: Cholecystectomy. Pancreas: Coarse calcifications at the pancreatic head can be seen with chronic pancreatitis. Bones/joints: The vertebrae are normal in height and alignment without focal lesion. Mild degenerative changes noted. Soft tissues: Unremarkable. IMPRESSION: Small filling defect within a medial subsegmental pulmonary arterial branch of the right lower lobe is likely small thrombus. The pulmonary arteries are otherwise clear. Interval progressive confluent and patchy ground-glass opacities superimposed upon underlying emphysematous lung disease.Imaging features can be seen with COVID-19 pneumonia, though are nonspecific and can occur with a variety of infectious and noninfectious processes. (Reference: Daniel) References: Daniel Sears et al., Radiological Society of [place] Expert Consensus Statement on Reporting Chest CT Findings Related to COVID-19. Endorsed by the Society of Thoracic Radiology, the [employer], and RSNA. Published February 02, 2020. Findings were discussed with Arti Gardiner NP at 11/12/2020 6:56 AM LINEN ROOM HOUSEPERSON.
[2020-11-12] MEDS ORDERED: Enoxaparin 100 MG/1 ML Syringe SUBCUT ONE (07:10)
== END 2020-11-12 08:01 ==
LOC: DL.ED 04:13
DX: I26.93 Single subsegmental thrombotic pulmonary embolism without acute cor pulmonale (principal); E78.00 Pure hypercholesterolemia, unspecified; I10 Essential (primary) hypertension; J44.9 Chronic obstructive pulmonary disease, unspecified; K21.9 Gastro-esophageal reflux disease without esophagitis; N40.0 Benign prostatic hyperplasia without lower urinary tract symptoms; M19.90 Unspecified osteoarthritis, unspecified site; E11.9 Type 2 diabetes mellitus without complications; E66.9 Obesity, unspecified; Z68.32 Body mass index [BMI] 32.0-32.9, adult; Z88.5 Allergy status to narcotic agent; Z88.0 Allergy status to penicillin; Z88.1 Allergy status to other antibiotic agents; Z88.8 Allergy status to other drugs, medicaments and biological substances; Z79.82 Long term (current) use of aspirin; Z79.4 Long term (current) use of insulin; Z79.899 Other long term (current) drug therapy
CPT/HCPCS: 36415; 71260; 80053; 81001; 83605; 83735; 83880; 84484; 85025; 85379; 85610; 86140; 87040; 93005; 96372; 99285; A9270; J1650; Q9967

== ENCOUNTER 2020-12-12 19:26 | Emergency (ER) | payer MEDICARE, OTHER ==
--- NOTE | 2020-12-12 19:40 | CR ---
PROCEDURE INFORMATION: Exam: XR Chest, 1 View Exam date and time: 12/12/2020 7:30 PM Age: 79 years old Clinical indication: Shortness of breath; Additional info: Short of breath TECHNIQUE: Imaging protocol: XR of the chest Views: 1 view. COMPARISON: CT Chest w Cont, Chest w Cont 11/12/2020 6:16 AM FINDINGS: Lungs: There are nonspecific ground-glass opacities in both lungs. The pulmonary vasculature is not engorged. Pleural spaces: There are no pleural effusions present. Heart/Mediastinum: The heart is not enlarged. Bones/joints: Unremarkable. Other findings: The study is moderately compromised by patient body habitus. IMPRESSION: Nonspecific ground-glass opacities in the lungs. The differential diagnosis includes viral pneumonia.
[2020-12-12 19:51] VITALS: BP 117/70; PULSE 60
--- NOTE | 2020-12-12 20:05 | EDM.PDOC ---
ED HPI GENERAL MEDICAL PROBLEM - General Chief Complaint: Respiratory Problem Stated Complaint: AMBULANCE/RESPITORY COMPLAINT Time Seen by Provider: 12/12/20 19:45 Source of Information: Reports: Patient History Limitations: Reports: No Limitations - History of Present Illness INITIAL COMMENTS - FREE TEXT/NARRATIVE: This 79 yo male patient was brought to the ED by [facility] due to coughing up blood. The patient reports his symptoms started at 1900 tonight. The patient reports he has a history of COVID (diagnosed on 11/02/20), a PE (diagnosed at the same time) and pneumonia (diagnosed 1 week after the COVID diagnosis). 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 The patient reports he is still on anticoagulants due to the PE. Onset: Today Onset Date: 12/12/20 Onset Time: 19:00 Duration: Hour(s):, Constant Quality: Reports: Other Severity: Moderate Improves with: Reports: None Worsens with: Reports: None Context: Reports: Other Associated Symptoms: Reports: Shortness of Breath - Related Data Allergies Allergy/AdvReac Type Severity Reaction Status Date / Time morphine Allergy Severe Difficulty Verified 11/12/20 04:25 Breathing amoxicillin [Amoxicillin] Allergy Diarrhea Verified 11/12/20 04:25 doxycycline Allergy Rash Verified 11/12/20 04:25 gabapentin Allergy Cannot Verified 11/12/20 04:25 Remember oxycodone Allergy Confusion Verified 11/12/20 04:25 tiotropium bromide Allergy Cannot Verified 11/12/20 04:25 [From Spiriva with Remember HandiHaler] Home Meds: Home Meds Acetaminophen [Tylenol Extra Strength] 1,000 mg PO BID PRN 03/08/14 [History] Albuterol [Proventil Neb Soln] 2.5 mg NEB BID PRN 03/08/14 [History] Albuterol [Ventolin HFA] 2 puff INH Q6H PRN 03/08/14 [History] Aspirin [Ecotrin EC] 81 mg PO DAILY 03/08/14 [History] Atenolol [Tenormin] 50 mg PO DAILY 03/08/14 [History] Fish Oil/[place]-3 Fatty Acids [Fish Oil 1,000 MG] 1 gm PO BID 03/08/14 [History] Furosemide [Lasix] 60 mg PO DAILY 03/08/14 [History] Nitroglycerin [Nitrostat] 0.4 mg SL ASDIRECTED PRN 03/08/14 [History] Omeprazole 20 mg PO DAILY 03/08/14 [History] Potassium Chloride [Klor-Con] 40 meq PO BID 03/08/14 [History] Simvastatin [Zocor] 10 mg PO BEDTIME 03/08/14 [History] Tamsulosin [Flomax] 0.4 mg PO DAILY 03/08/14 [History] Finasteride 5 mg PO DAILY 04/04/15 [History] Mometasone/Formoterol [Dulera 200-5 MCG] 1 puff INH ASDIRECTED 04/04/15 [History] rOPINIRole [Requip] 0.5 mg PO BEDTIME PRN 04/04/15 [History] Insulin Glarg,Human.Rec.Analog [Lantus] 16 units SQ BEDTIME 11/05/20 [History] Fluticasone Propionate 1 spray NASBOTH DAILY 11/06/20 [History] Azithromycin 250 mg PO DAILY 5 Days #5 tablet 11/09/20 [Rx] dexAMETHasone [Dexamethasone] 6 mg PO DAILY 7 Days #7 tab 11/09/20 [Rx] Past Medical History HEENT History: Reports: Hard of Hearing, Impaired Vision Other HEENT History: bilateral hearing aids, glasses Cardiovascular History: Reports: High Cholesterol, Hypertension, Stents Respiratory History: Reports: Bronchitis, Recurrent, COPD, Pneumonia, Recurrent, SOB, Other (See Below) Other Respiratory History: lung mass/lung cancer, left upper lobectomy Gastrointestinal History: Reports: GERD, Pancreatitis Other Gastrointestinal History: duodenal ulcer disease Genitourinary History: Reports: BPH Other Genitourinary History: BPH Musculoskeletal History: Reports: Arthritis, Back Pain, Chronic, Fracture Other Musculoskeletal History: ankle arthroscopy, intercostal neuralgia Neurological History: Reports: Other (See Below) Other Neuro History: intercostal neuralgia Psychiatric History: Reports: Anxiety, Suicidal Ideation Endocrine/Metabolic History: Reports: Diabetes, Type II, Obesity/BMI 30+ Hematologic History: Reports: None Immunologic History: Reports: None Oncologic (Cancer) History: Reports: Lung Dermatologic History: Reports: None - Infectious Disease History Infectious Disease History: Reports: Chicken Pox, Measles, Mumps, Novel Coronavirus - Past Surgical History Head Surgeries/Procedures: Reports: None HEENT Surgical History: Reports: Adenoidectomy, Cataract Surgery, Tonsillectomy, Other (See Below) Other HEENT Surgeries/Procedures: bilat hearing aides Cardiovascular Surgical History: Reports: Coronary Artery Stent Other Cardiovascular Surgeries/Procedures: times three Respiratory Surgical History: Reports: Other (See Below) Other Respiratory Surgeries/Procedures: part of left lung removed for CA GI Surgical History: Reports: Cholecystectomy, Colonoscopy, EGD Male Surgical History: Reports: Other (See Below) Other Male Surgeries/Procedures: prostate surgery? Social & Family History - Family History Family Medical History: No Pertinent Family History Cardiac: Reports: Hypertension, [place] - Tobacco Use Tobacco Use Status *Q: Unknown Ever Used Tobacco Second Hand Smoke Exposure: No - Caffeine Use Caffeine Use: Reports: Coffee - Recreational Drug Use Recreational Drug Use: No ED ROS GENERAL - Review of Systems Review Of Systems: Comprehensive ROS is negative, except as noted in HPI. ED EXAM, GENERAL - Physical Exam Exam: See Below Exam Limited By: No Limitations General Appearance: Alert, WD/WN, Mild Distress Eye Exam: Bilateral Eye: EOMI, Normal Inspection, PERRL Ears: Hearing Loss (with hearing aid in left ear (no hearing aid in right ear due to cancer)) Nose: Normal Inspection, Normal Mucosa, No Blood Throat/Mouth: Other (blood visible throughout the oral cavity ) Head: Atraumatic, Normocephalic Neck: Normal Inspection, Supple, Non-Tender, Full Range of Motion Respiratory/Chest: No Respiratory Distress, Lungs Clear, Normal Breath Sounds, No Accessory Muscle Use, Chest Non-Tender Cardiovascular: Normal Peripheral Pulses, Regular Rate, Rhythm, No Edema, No Gallop, No JVD, No Murmur, No Rub GI/Abdominal: Normal Bowel Sounds, Soft, Non-Tender, No Organomegaly, No Dis tention, No Abnormal Bruit, No Mass (Male) Exam: Deferred Rectal (Males) Exam: Deferred Back Exam: Normal Inspection, Full Range of Motion, NT Extremities: Pedal Edema (left) Neurological: Alert, Oriented, CN II-XII Intact, Normal Cognition, Normal Gait, Normal Reflexes, No Motor/Sensory Deficits Psychiatric: Normal Affect, Normal Mood Skin Exam: Warm, Dry, Intact, Normal Color, No Rash Lymphatic: No Adenopathy Course - Vital Signs Last Recorded V/S: Last Vital Signs Temp 36.4 C 12/12/20 19:42 Pulse 60 12/12/20 19:42 Resp 20 12/12/20 19:42 BP 117/70 12/12/20 19:42 Pulse Ox 94 L 12/12/20 19:42 - Orders/Labs/Meds Orders: Active Orders 24 hr Category Date Time Status EKG Documentation Completion [RC] STAT Care 12/12/20 19:25 Active COMPREHENSIVE METABOLIC PN,CMP [CHEM] Stat Lab 12/12/20 19:46 Results CULTURE BLOOD [BC] Stat Lab 12/12/20 19:46 Received RED BLOOD CELLS LP [BBK] Stat Lab 12/12/20 19:46 Received TROPONIN I [CHEM] Stat Lab 12/12/20 19:46 Results TYPE AND SCREEN [BBK] Stat Lab 12/12/20 19:46 Received Labs: Laboratory Tests 12/12/20 12/12/20 12/12/20 Range/Units 19:46 19:46 19:46 WBC 6.0 (5.0-10.0) 10^3/uL RBC 3.99 L (4.6-6.2) 10^6/uL Hgb 12.6 L D (14.0-18.0) g/dL Hct 37.7 L (40.0-54.0) % MCV 94.5 D (80-100) fL MCH 31.6 (27.0-34.0) pg MCHC 33.4 (33.0-35.0) g/dL Plt Count 393 D (150-450) 10^3/uL Neut % (Auto) 55.8 (42.2-75.2) % Lymph % (Auto) 28.9 (20.5-50.1) % [place] % (Auto) 9.9 H (2-8) % Eos % (Auto) 4.9 H (1.0-3.0) % Baso % (Auto) 0.5 (0.0-1.0) % Add Manual Diff Yes Neutrophils % (Manual) 57 (42-75) % Band Neutrophils % 3 % Lymphocytes % (Manual) 26 (20-50) % Monocytes % (Manual) 9 H (2-8) % Eosinophils % (Manual) 5 H (1-3) % PT 10.9 (9.0-12.0) SEC INR 1.2 (0.9-1.2) APTT 26.5 (22.0-34.0) SEC Troponin I < 0.02 (0.00-0.08) ng/mL Meds: Medications Discontinued Medications Generic Name Dose Route Start Last Admin Trade Name Don PRN Reason Stop Dose Admin Pantoprazole Sodium 40 mg 12/12/20 20:38 12/12/20 21:11 Protonix Iv IVPUSH 12/12/20 20:39 40 mg ONETIME ONE Administration - Re-Assessments/Exams Free Text/Narrative Re-Assessment/Exam: 12/12/20 21:32 During the patient's visit, the chemistry analyzer was not working properly thus we could not do a complete evaluation of the patient without knowing his kidney functions. [facility] had no medical beds available. The next closest facility was [facility]. Dr Orozco (ED provider with [place]) accepted the patient for continued evaluation and further treatment. Departure - Departure Time of Disposition: 21:27 Disposition: DC/Tfer to [facility] 02 Condition: Fair Clinical Impression: Anticoagulated by anticoagulation treatment GI bleed Qualifiers: GI bleed type/associated pathology: unspecified gastrointestinal hemorrhage type Qualified Code(s): K92.2 - Gastrointestinal hemorrhage, unspecified - Discharge Information *PRESCRIPTION DRUG MONITORING PROGRAM REVIEWED*: Not Applicable *COPY OF PRESCRIPTION DRUG MONITORING REPORT IN PATIENT MARIANNE: Not Applicable Forms: Interfacility Transfer EMTALA Care Plan Goals: Discussed the patient's history, examination, lab results, x-ray results and EKG with Dr. Orozco (ED provider at [facility]). Dr. Orozco accepted the patient for continued evaluation and further treatment. The patient will be transported by [facility]. Sepsis Event Note (ED) - Evaluation Sepsis Screening Result: No Definite Risk - Focused Exam Vital Signs: Vital Signs Temp Pulse Resp BP Pulse Ox Pulse Ox 12/12/20 19:42 36.4 C 60 20 117/70 94 L 12/12/20 19:40 94 L - My Orders Last 24 Hours: My Active Orders 12/12/20 19:25 EKG Documentation Completion [RC] STAT 12/12/20 19:46 COMPREHENSIVE METABOLIC PN,CMP [CHEM] Stat CULTURE BLOOD [BC] Stat RED BLOOD CELLS LP [BBK] Stat TROPONIN I [CHEM] Stat TYPE AND SCREEN [BBK] Stat - Assessment/Plan Last 24 Hours: My Active Orders 12/12/20 19:25 EKG Documentation Completion [RC] STAT 12/12/20 19:46 COMPREHENSIVE METABOLIC PN,CMP [CHEM] Stat CULTURE BLOOD [BC] Stat RED BLOOD CELLS LP [BBK] Stat TROPONIN I [CHEM] Stat TYPE AND SCREEN [BBK] Stat
[2020-12-12 20:15] LABS: PTT,PARTIAL THROMBOPLSTIN TIME 26.5 SEC (22.0-34.0)
[2020-12-12] MEDS ORDERED: Pantoprazole 40 MG Vial IVPUSH ONE (20:38)
[2020-12-12 22:53] LABS: ANION GAP 11.6 mEq/L (7-13); CHLORIDE,CL 102 mmol/L (98-107)
[2020-12-12 22:55] LABS: SODIUM,NA 138 mmol/L (136-145)
== END 2020-12-12 22:14 ==
LOC: DL.ED 19:26
DX: K92.2 Gastrointestinal hemorrhage, unspecified (principal); E78.00 Pure hypercholesterolemia, unspecified; I10 Essential (primary) hypertension; J44.9 Chronic obstructive pulmonary disease, unspecified; K21.9 Gastro-esophageal reflux disease without esophagitis; N40.0 Benign prostatic hyperplasia without lower urinary tract symptoms; M19.90 Unspecified osteoarthritis, unspecified site; E11.9 Type 2 diabetes mellitus without complications; E66.9 Obesity, unspecified; Z68.32 Body mass index [BMI] 32.0-32.9, adult; Z79.01 Long term (current) use of anticoagulants; Z88.5 Allergy status to narcotic agent; Z88.0 Allergy status to penicillin; Z88.8 Allergy status to other drugs, medicaments and biological substances; Z79.82 Long term (current) use of aspirin; Z79.4 Long term (current) use of insulin; Z79.899 Other long term (current) drug therapy; Z88.1 Allergy status to other antibiotic agents
CPT/HCPCS: 36415; 71045; 80053; 84484; 85025; 85610; 85730; 87040; 93005; 96374; 99285; C9113; 86850; 86900; 86901; 86920; 86922

== ENCOUNTER 2021-04-24 23:17 | Emergency (ER) | payer MEDICARE, OTHER ==
[2021-04-24 23:29] VITALS: BP 138/57; PULSE 91
[2021-04-24] MEDS ORDERED: Aspirin 81 MG Tab.Chew PO ONE (23:34)
[2021-04-24] MEDS ORDERED: fentaNYL 100 MCG/2 ML SDV IVPUSH ONE (23:56)
[2021-04-25 00:04] LABS: ANION GAP 13.6 mEq/L (7-13)
[2021-04-25] MEDS ORDERED: Iopamidol 612 MG/ML 100 ML Bottle IVPUSH ONE (00:15)
--- NOTE | 2021-04-25 00:30 | CR ---
PROCEDURE INFORMATION: Exam: XR Chest Exam date and time: 04/24/2021 11:42 PM Age: 80 years old Clinical indication: Pain; Other: Chest; Additional info: Chest pain TECHNIQUE: Imaging protocol: XR of the chest. Views: 1 view. COMPARISON: CR Chest 1V Frontal 12/12/2020 7:30 PM FINDINGS: Lungs: Unremarkable. No consolidation. Pleural spaces: Unremarkable. No pleural effusion. No pneumothorax. Heart/Mediastinum: Enlarged cardiac silhouette. Bones/joints: Unremarkable. IMPRESSION: Enlarged cardiac silhouette.
--- NOTE | 2021-04-25 01:53 | CT ---
PROCEDURE INFORMATION: Exam: CT Chest With Contrast; Diagnostic Exam date and time: 04/25/2021 1:26 AM Age: 80 years old Clinical indication: Abdominal pain; Chest wall pain; Additional info: Pain vomiting TECHNIQUE: Imaging protocol: Diagnostic computed tomography of the chest with contrast. Radiation optimization: All CT scans at this facility use at least one of these dose optimization techniques: automated exposure control; mA and/or kV adjustment per patient size (includes targeted exams where dose is matched to clinical indication); or iterative reconstruction. Contrast material: ISOVUE; Contrast volume: 100 ml; Contrast route: INTRAVENOUS (IV); COMPARISON: CT Chest Abdomen Pelvis wo Cont 03/17/2019 10:19 AM FINDINGS: Lungs: 2.0 x 2.3 cm ground-glass nodule in the right upper lobe. Centrilobular emphysema with pulmonary hyperinflation. Pleural spaces: Unremarkable. No pneumothorax. No pleural effusion. Heart: Unremarkable. No cardiomegaly. No pericardial effusion. Mediastinal space: Small hiatal hernia. Aorta: Unremarkable. No aortic aneurysm. Lymph nodes: Unremarkable. No enlarged lymph nodes. Bones/joints: Unremarkable. No acute fracture. Soft tissues: Unremarkable. IMPRESSION: Ground-glass nodule in the right upper lobe, differential diagnosis includes an acute inflammatory as well as infectious process. Follow-up recommended to ensure that this process resolves. PROCEDURE INFORMATION: Exam: CT Abdomen And Pelvis With Contrast Exam date and time: 04/25/2021 1:26 AM Age: 80 years old Clinical indication: Abdominal pain; Chest wall pain; Additional info: Pain vomiting TECHNIQUE: Imaging protocol: Computed tomography of the abdomen and pelvis with contrast. Radiation optimization: All CT scans at this facility use at least one of these dose optimization techniques: automated exposure control; mA and/or kV adjustment per patient size (includes targeted exams where dose is matched to clinical indication); or iterative reconstruction. Contrast material: ISOVUE; Contrast volume: 100 ml; Contrast route: INTRAVENOUS (IV); COMPARISON: CT Chest Abdomen Pelvis wo Cont 03/17/2019 10:19 AM FINDINGS: Liver: See "Gallbladder and bile ducts" finding. Gallbladder and bile ducts: Status post cholecystectomy. There is a small amount of pneumobilia in the left hepatic lobe, similar to the prior study. Pancreas: Normal. No ductal dilation. Spleen: Normal. No splenomegaly. Adrenal glands: Normal. No mass. Kidneys and ureters: Normal. No hydronephrosis. Stomach and bowel: Unremarkable. No obstruction. No mucosal thickening. Appendix: No evidence of appendicitis. Intraperitoneal space: Unremarkable. No free air. No significant fluid collection. Vasculature: Unremarkable. No abdominal aortic aneurysm. Lymph nodes: Unremarkable. No enlarged lymph nodes. Urinary bladder: Unremarkable as visualized. Reproductive: Unremarkable as visualized. Bones/joints: Unremarkable. No acute fracture. Soft tissues: Unremarkable. IMPRESSION: 1. Pneumobilia, presumed to be iatrogenic. 2. No superimposed acute abnormality.
--- NOTE | 2021-04-27 01:42 | EDM.PDOC ---
ED HPI GENERAL MEDICAL PROBLEM - General Chief Complaint: Chest Pain Stated Complaint: HEART HURTS Time Seen by Provider: 04/24/21 23:30 Source of Information: Reports: Patient, RN History Limitations: Reports: No Limitations - History of Present Illness INITIAL COMMENTS - FREE TEXT/NARRATIVE: ED with c/o left chest pain started 2200, points started midsternal now radiating to lower abdomen. No radiation to arms or jaw No SOB. Remote cardiac hx. No vomiting. felt chills at onset. Tried 3 nitro around 0 without change in pain. Alos notes hx of pancreatitis in past that has felt similar Left Chest Pain Score (Numeric/FACES): 10 - Related Data Allergies Allergy/AdvReac Type Severity Reaction Status Date / Time morphine Allergy Severe Difficulty Verified 11/12/20 04:25 Breathing amoxicillin [Amoxicillin] Allergy Diarrhea Verified 11/12/20 04:25 doxycycline Allergy Rash Verified 11/12/20 04:25 gabapentin Allergy Cannot Verified 11/12/20 04:25 Remember oxycodone Allergy Confusion Verified 11/12/20 04:25 tiotropium bromide Allergy Cannot Verified 11/12/20 04:25 [From Spiriva with Remember HandiHaler] Home Meds: Home Meds Acetaminophen [Tylenol Extra Strength] 1,000 mg PO BID PRN 03/08/14 [History] Albuterol [Proventil Neb Soln] 2.5 mg NEB BID PRN 03/08/14 [History] Albuterol [Ventolin HFA] 2 puff INH Q6H PRN 03/08/14 [History] Aspirin [Ecotrin EC] 81 mg PO DAILY 03/08/14 [History] Atenolol [Tenormin] 50 mg PO DAILY 03/08/14 [History] Fish Oil/[place]-3 Fatty Acids [Fish Oil 1,000 MG] 1 gm PO BID 03/08/14 [History] Furosemide [Lasix] 60 mg PO DAILY 03/08/14 [History] Nitroglycerin [Nitrostat] 0.4 mg SL ASDIRECTED PRN 03/08/14 [History] Omeprazole 20 mg PO DAILY 03/08/14 [History] Potassium Chloride [Klor-Con] 40 meq PO BID 03/08/14 [History] Simvastatin [Zocor] 10 mg PO BEDTIME 03/08/14 [History] Tamsulosin [Flomax] 0.4 mg PO DAILY 03/08/14 [History] Finasteride 5 mg PO DAILY 04/04/15 [History] Mometasone/Formoterol [Dulera 200-5 MCG] 1 puff INH ASDIRECTED 04/04/15 [History] rOPINIRole [Requip] 0.5 mg PO BEDTIME PRN 04/04/15 [History] Insulin Glarg,Human.Rec.Analog [Lantus] 16 units SQ BEDTIME 11/05/20 [History] Fluticasone Propionate 1 spray NASBOTH DAILY 11/06/20 [History] Azithromycin 250 mg PO DAILY 5 Days #5 tablet 11/09/20 [Rx] dexAMETHasone [Dexamethasone] 6 mg PO DAILY 7 Days #7 tab 11/09/20 [Rx] Past Medical History HEENT History: Reports: Hard of Hearing, Impaired Vision Other HEENT History: bilateral hearing aids, glasses Cardiovascular History: Reports: High Cholesterol, Hypertension, Stents Respiratory History: Reports: Bronchitis, Recurrent, COPD, Pneumonia, Recurrent, SOB, Other (See Below) Other Respiratory History: lung mass/lung cancer, left upper lobectomy Gastrointestinal History: Reports: GERD, Pancreatitis Other Gastrointestinal History: duodenal ulcer disease Genitourinary History: Reports: BPH Other Genitourinary History: BPH Musculoskeletal History: Reports: Arthritis, Back Pain, Chronic, Fracture Other Musculoskeletal History: ankle arthroscopy, intercostal neuralgia Neurological History: Reports: Other (See Below) Other Neuro History: intercostal neuralgia Psychiatric History: Reports: Anxiety, Suicidal Ideation Endocrine/Metabolic History: Reports: Diabetes, Type II, Obesity/BMI 30+ Hematologic History: Reports: None Immunologic History: Reports: None Oncologic (Cancer) History: Reports: Lung Dermatologic History: Reports: None - Infectious Disease History Infectious Disease History: Reports: Chicken Pox, Measles, Mumps, Novel Coronavirus - Past Surgical History Head Surgeries/Procedures: Reports: None HEENT Surgical History: Reports: Adenoidectomy, Cataract Surgery, Tonsillectomy, Other (See Below) Other HEENT Surgeries/Procedures: bilat hearing aides Cardiovascular Surgical History: Reports: Coronary Artery Stent Other Cardiovascular Surgeries/Procedures: times three Respiratory Surgical History: Reports: Other (See Below) Other Respiratory Surgeries/Procedures: part of left lung removed for CA GI Surgical History: Reports: Cholecystectomy, Colonoscopy, EGD Male Surgical History: Reports: Other (See Below) Other Male Surgeries/Procedures: prostate surgery? Social & Family History - Family History Family Medical History: No Pertinent Family History Cardiac: Reports: Hypertension, [place] - Tobacco Use Tobacco Use Status *Q: Former Tobacco User Used Tobacco, but Quit: Yes Month/Year Tobacco Last Used: quit 27 yeras ago Second Hand Smoke Exposure: No - Caffeine Use Caffeine Use: Reports: Coffee - Recreational Drug Use Recreational Drug Use: No ED ROS GENERAL - Review of Systems Review Of Systems: Comprehensive ROS is negative, except as noted in HPI. ED EXAM, GENERAL - Physical Exam Exam: See Below Exam Limited By: No Limitations General Appearance: Alert, Anxious, Obese Eye Exam: Bilateral Eye: EOMI Ears: Normal External Exam Nose: Normal Inspection Throat/Mouth: Normal Inspection Neck: Normal Inspection Respiratory/Chest: No Respiratory Distress, Lungs Clear, Normal Breath Sounds Cardiovascular: Regular Rate, Rhythm (1+), No Murmur GI/Abdominal: No Distention, Tender (Left mid), Abnormal Bowel Sounds (hyperactive). No: Distended Back Exam: Full Range of Motion Extremities: Normal Inspection Neurological: Alert, Oriented, Normal Cognition Psychiatric: Anxious Skin Exam: Normal Color #1 Interpretation EKG Date: 04/24/21 Time: 23:31 Rhythm: NSR [place]: Normal P-Wave: Present QRS: Normal ST-T: Normal Comparison: Other: (No acute change) Course - Vital Signs Last Recorded V/S: Last Vital Signs Temp 98.2 F 04/24/21 23:24 Pulse 91 04/24/21 23:24 Resp 18 04/24/21 23:24 BP 138/57 L 04/24/21 23:24 Pulse Ox 93 L 04/24/21 23:24 - Orders/Labs/Meds Labs: Laboratory Tests 04/24/21 04/24/21 04/24/21 Range/Units 23:32 23:32 23:32 WBC 14.1 H (5.0-10.0) 10^3/uL RBC 4.63 (4.6-6.2) 10^6/uL Hgb 14.3 D (14.0-18.0) g/dL Hct 43.3 (40.0-54.0) % MCV 93.5 (80-100) fL MCH 30.9 (27.0-34.0) pg MCHC 33.0 (33.0-35.0) g/dL Plt Count 221 D (150-450) 10^3/uL Neut % (Auto) 84.9 H (42.2-75.2) % Lymph % (Auto) 10.4 L (20.5-50.1) % [place] % (Auto) 3.5 (2-8) % Eos % (Auto) 1.1 (1.0-3.0) % Baso % (Auto) 0.1 (0.0-1.0) % PT 10.5 (9.0-12.0) SEC INR 1.0 (0.9-1.2) D-Dimer, Quantitative 914 H (0-400) ng/mL Sodium 143 (136-145) mmol/L Potassium 3.6 (3.5-5.1) mmol/L Chloride 106 (98-107) mmol/L Carbon Dioxide 27 (21-32) mmol/L Anion Gap 13.6 H (7-13) mEq/L BUN 19 H (7-18) mg/dL Creatinine 1.24 (0.70-1.30) mg/dL Est Cr Clr Drug Dosing 50.41 mL/min Estimated GFR (MDRD) 56 BUN/Creatinine Ratio 15.3 (No establ ref range) Glucose 190 H (70-99) mg/dL Calcium 8.2 L (8.5-10.1) mg/dL Magnesium 2.2 (1.8-2.4) mg/dL Total Bilirubin 1.4 H (0.2-1.0) mg/dL AST 332 H (15-37) U/L ALT 196 H (16-63) U/L Alkaline Phosphatase 142 H (46-116) U/L Troponin I High Sens 18 (<=76) pg/mL B-Natriuretic Peptide 14 (0-100) pg/ml Total Protein 6.4 (6.4-8.2) g/dL Albumin 3.4 (3.4-5.0) g/dL Globulin 3.0 Albumin/Globulin Ratio 1.1 Amylase 48 (25-115) U/L Lipase 129 (73-393) U/L Meds: Medications Discontinued Medications Generic Name Dose Route Start Last Admin Trade Name Freq PRN Reason Stop Dose Admin Aspirin 324 mg 04/24/21 23:34 04/25/21 00:05 Aspirin 81 Mg Tab.Chew PO 04/24/21 23:35 324 mg ONETIME ONE Administration Fentanyl 25 mcg 04/24/21 23:56 04/25/21 00:06 Fentanyl 100 Mcg/2 Ml Sdv IVPUSH 04/24/21 23:57 25 mcg ONETIME ONE Administration Iopamidol 100 ml 04/25/21 00:15 04/25/21 06:54 Iopamidol 612 Mg/Ml 100 Ml Bottle IVPUSH 04/25/21 00:16 100 ml ONETIME ONE Administration Departure - Departure Time of Disposition: 03:10 Disposition: Home, Self-Care 01 Condition: Good Clinical Impression: Abdominal pain Qualifiers: Abdominal location: left upper quadrant Qualified Code(s): R10.12 - Left upper quadrant pain Instructions: Abdominal Pain, Adult Referrals: PCP,None [Primary Care Provider] - Forms: ED Department Discharge Additional Instructions: clinic follow up low fat bland diet follow up urgently fever, vomiting , worsening of symptoms Sepsis Event Note (ED) - Evaluation Sepsis Screening Result: No Definite Risk
== END 2021-04-25 03:11 | disposition home or self-care (01) ==
LOC: DL.ED 23:17
DX: R10.12 Left upper quadrant pain (principal); E78.00 Pure hypercholesterolemia, unspecified; I10 Essential (primary) hypertension; J44.9 Chronic obstructive pulmonary disease, unspecified; E11.9 Type 2 diabetes mellitus without complications; Z68.30 Body mass index [BMI] 30.0-30.9, adult; Z95.5 Presence of coronary angioplasty implant and graft; Z87.891 Personal history of nicotine dependence
CPT/HCPCS: 36415; 71045; 71260; 74177; 80053; 82150; 83690; 83735; 83880; 84484; 85025; 85379; 85610; 93005; 93010; 96374; 99284; 99285-25; A9270-GY; J3010; Q9967

== ENCOUNTER 2022-10-09 03:00 | Emergency (ER) | payer MEDICARE, OTHER ==
[2022-10-09 04:30] VITALS: BP 100/60; PULSE 70
[2022-10-09 05:03] LABS: PTT,PARTIAL THROMBOPLSTIN TIME 29.9 SEC (22.0-34.0)
[2022-10-09 05:07] LABS: ANION GAP 9.8 mEq/L (7-13)
[2022-10-09 05:16] LABS: CORONAVIRUS COVID-19 NAA NEGATIVE (NEGATIVE); RESPIRATORY SYNCYTIAL VIR NAA NEGATIVE (NEGATIVE)
[2022-10-09] MEDS ORDERED: cefTRIAXone 1 GM Vial IVPUSH ONE (05:50)
[2022-10-09] MEDS ORDERED: Azithromycin 250 MG Tab PO ONE (05:51)
[2022-10-09] MEDS ORDERED: cefTRIAXone 1 GM, Lidocaine 1% 2.1 ML IM ONE ×2 (06:03)
== END 2022-10-09 06:28 | disposition home or self-care (01) ==
LOC: DL.ED 03:00
DX: J18.9 Pneumonia, unspecified organism (principal); I10 Essential (primary) hypertension; E78.00 Pure hypercholesterolemia, unspecified; J44.9 Chronic obstructive pulmonary disease, unspecified; K21.9 Gastro-esophageal reflux disease without esophagitis; M19.90 Unspecified osteoarthritis, unspecified site; E11.9 Type 2 diabetes mellitus without complications; E66.9 Obesity, unspecified; Z68.32 Body mass index [BMI] 32.0-32.9, adult; Z88.5 Allergy status to narcotic agent; Z88.0 Allergy status to penicillin; Z88.1 Allergy status to other antibiotic agents; Z88.8 Allergy status to other drugs, medicaments and biological substances; Z79.82 Long term (current) use of aspirin; Z79.4 Long term (current) use of insulin; Z79.899 Other long term (current) drug therapy; Z20.822 Contact with and (suspected) exposure to COVID-19
CPT/HCPCS: 0241U; 36415; 71045; 80053; 82150; 83605; 83690; 84484; 85025; 85610; 85730; 86140; 93005; 96372; 99284; A9270; J0696

== ENCOUNTER 2023-07-15 13:09 | Emergency (ER) | payer MEDICARE, OTHER ==
[2023-07-15 13:40] VITALS: BP 142/82; PULSE 94
== END 2023-07-15 13:49 | disposition home or self-care (01) ==
LOC: DL.ED 13:09
DX: T63.441A Toxic effect of venom of bees, accidental (unintentional), initial encounter (principal); L08.9 Local infection of the skin and subcutaneous tissue, unspecified; E78.00 Pure hypercholesterolemia, unspecified; I10 Essential (primary) hypertension; J44.9 Chronic obstructive pulmonary disease, unspecified; K21.9 Gastro-esophageal reflux disease without esophagitis; N40.0 Benign prostatic hyperplasia without lower urinary tract symptoms; E66.9 Obesity, unspecified; Z68.33 Body mass index [BMI] 33.0-33.9, adult; Z88.5 Allergy status to narcotic agent; Z88.0 Allergy status to penicillin; Z88.1 Allergy status to other antibiotic agents; Z88.8 Allergy status to other drugs, medicaments and biological substances; Z79.899 Other long term (current) drug therapy; Z79.82 Long term (current) use of aspirin
CPT/HCPCS: 99282; 99283

== ENCOUNTER 2023-09-24 22:25 | Emergency (ER) | payer MEDICARE, OTHER ==
[2023-09-24] MEDS ORDERED: Ondansetron 4 MG/2 ML SDV IVPUSH ONE (22:28)
[2023-09-24] MEDS ORDERED: Naloxone 2 MG/2 ML Syringe IVPUSH PRN ×2 (22:47→23:00)
[2023-09-24 22:57] LABS: BASOPHILS PERCENT AUTO 0.2 % (0.0-1.0); EOSINOPHILS PERCENT AUTO 0.3 % (1.0-3.0); HEMATOCRIT 40.5 % (40.0-54.0); HEMOGLOBIN 13.6 g/dL (14.0-18.0); LYMPHOCYTES PERCENT AUTO 3.4 % (20.5-50.1); MEAN CORPUSCULAR HEMOGLOBIN 31.4 pg (27.0-34.0); MEAN CORPUSCULAR HGB CONC 33.6 g/dL (33.0-35.0); MEAN CORPUSCULAR VOLUME 93.5 fL (80-100); MONOCYTES PERCENT AUTO 1.3 % (2-8); NEUTROPHILS PERCENT AUTO 94.8 % (42.2-75.2); PLATELET COUNT,PLT 240 10^3/uL (150-450); RED BLOOD CELL COUNT 4.33 10^6/uL (4.6-6.2); WHITE BLOOD CELL COUNT,WBC 11.9 10^3/uL (5.0-10.0)
[2023-09-24] MEDS ORDERED: Sodium Chloride 0.9% 1,000 ML IV ONE (23:13)
[2023-09-24 23:15] LABS: ALBUMIN 3.1 g/dL (3.4-5.0); ANION GAP 13.6 mEq/L (7-13); BUN/CREATININE RATIO 11.8 (No establ ref range); C-REACTIVE PROTEIN 1.81 ng/dL (<=0.50); CALCIUM 8.4 mg/dL (8.5-10.1); CREATININE 1.36 mg/dL (0.70-1.30); EST CRCL DRUG DOSING (CG) 41.75 mL/min; MAGNESIUM 1.6 mg/dL (1.8-2.4); POTASSIUM,K 3.6 mmol/L (3.5-5.1); PROTEIN TOTAL,TP 6.6 g/dL (6.4-8.2)
[2023-09-24 23:19] LABS: A/G RATIO 0.89
[2023-09-24 23:22] LABS: PROTHROMBIN TIME 10.6 SEC (9.0-12.0); PTT,PARTIAL THROMBOPLSTIN TIME 23.5 SEC (22.0-34.0)
[2023-09-24 23:27] LABS: CORONAVIRUS COVID-19 NAA NEGATIVE (NEGATIVE); INFLUENZA A NAA NEGATIVE (NEGATIVE); INFLUENZA B NAA NEGATIVE (NEGATIVE); RESPIRATORY SYNCYTIAL VIR NAA NEGATIVE (NEGATIVE)
[2023-09-24 23:42] LABS: O2 DELIVERY DEVICE NASAL CANNULA
[2023-09-24 23:52] LABS: BASE EXCESS ARTERIAL -3 mmol/L ((-2)-(+3)); BICARBONATE,ARTERIAL 19.8 mmol/L (22-26); O2 SATURATION ARTERIAL 94 % (95-100); PCO2 ARTERIAL 31 mmHg (35-45); PH,ARTERIAL 7.42 (7.35-7.45); PO2 ARTERIAL 68 mmHg (70-100)
[2023-09-24 23:53] LABS: ALLEN TEST positive
[2023-09-25] MEDS ORDERED: Iopamidol 612 MG/ML 100 ML Bottle IVPUSH ONE (00:01)
[2023-09-25 00:24] LABS: APPEARANCE,URINE CLEAR (CLEAR); BILIRUBIN,URINE SMALL (NEGATIVE); COLOR,URINE YELLOW (YELLOW); GLUCOSE,URINE NEGATIVE (NEGATIVE); KETONES,URINE NEGATIVE (NEGATIVE); LEUKOCYTE ESTERASE,URINE NEGATIVE (NEGATIVE); NITRITE,URINE NEGATIVE (NEGATIVE); OCCULT BLOOD,URINE NEGATIVE (NEGATIVE); PROTEIN,URINE 30 (NEGATIVE)
[2023-09-25 00:26] LABS: AMPHETAMINES,URINE NEGATIVE (NEGATIVE); BARBITURATES,URINE NEGATIVE (NEGATIVE); BENZODIAZEPINE,URINE NEGATIVE (NEGATIVE); MDMA (ECSTASY), URINE NEGATIVE (NEGATIVE); METHADONE,URINE NEGATIVE (NEGATIVE); METHAMPHETAMINES,URINE NEGATIVE (NEGATIVE); OPIATES,URINE NEGATIVE (NEGATIVE); OXYCODONE,URINE NEGATIVE (NEGATIVE); PHENCYCLIDINE,URINE NEGATIVE (NEGATIVE); TCA,URINE NEGATIVE (NEGATIVE)
[2023-09-25 00:41] LABS: BACTERIA,URINE OCCASIONAL /HPF (0-FEW/HPF); EPITHELIAL CELLS,URINE FEW /HPF (NOT SEEN); MUCUS,URINE OCCASIONAL /LPF (NOT SEEN); RBC,URINE 0-5 /HPF (0-5); WBC,URINE NOT SEEN /HPF (0-5/HPF)
[2023-09-25] MEDS ORDERED: Acetaminophen 500 MG Tab PO ONE (00:54)
[2023-09-25] MEDS ORDERED: Piperacillin/Tazobactam 3.375 GM in Sodium Chloride 0.9% 100 ML IV ONE (00:55)
[2023-09-25 02:46] VITALS: BP 105/70; PULSE 108
[2023-09-25] MEDS ORDERED: fentaNYL 100 MCG/2 ML SDV IVPUSH ONE (03:19)
== END 2023-09-25 03:28 ==
LOC: DL.ED 22:25
DX: R10.13 Epigastric pain (principal); K83.8 Other specified diseases of biliary tract; R94.5 Abnormal results of liver function studies; E11.9 Type 2 diabetes mellitus without complications; E66.9 Obesity, unspecified; E78.00 Pure hypercholesterolemia, unspecified; I10 Essential (primary) hypertension; J44.9 Chronic obstructive pulmonary disease, unspecified; K21.9 Gastro-esophageal reflux disease without esophagitis; M19.90 Unspecified osteoarthritis, unspecified site; Z95.5 Presence of coronary angioplasty implant and graft; Z86.16 Personal history of COVID-19; Z79.82 Long term (current) use of aspirin; Z79.899 Other long term (current) drug therapy; Z88.1 Allergy status to other antibiotic agents; Z88.5 Allergy status to narcotic agent; Z88.8 Allergy status to other drugs, medicaments and biological substances; Z68.35 Body mass index [BMI] 35.0-35.9, adult
CPT/HCPCS: 0241U; 36415; 36600; 70450; 71045; 74177; 80053; 80305-QW; 80307; 81001; 82140; 82803; 83605; 83690; 83735; 83880; 84145; 84484; 85025; 85610; 85730; 86140; 87040; 87077; 87186; 93005; 93010; 96361; 96365; 96375; 99285; 99285-25; A9270-GY; C1758; J2310; J2405; J2543; J3010; J3490; J7030; Q9967

== ENCOUNTER 2024-01-26 22:07 | Emergency (ER) | payer MEDICARE, OTHER ==
[2024-01-26 22:33] VITALS: BP 119/90; PULSE 105
== END 2024-01-26 22:21 | disposition home or self-care (01) ==
LOC: DL.ED 22:07
DX: L76.21 Postprocedural hemorrhage of skin and subcutaneous tissue following a dermatologic procedure (principal); I25.10 Atherosclerotic heart disease of native coronary artery without angina pectoris; I11.0 Hypertensive heart disease with heart failure; I50.9 Heart failure, unspecified; E78.00 Pure hypercholesterolemia, unspecified; J44.9 Chronic obstructive pulmonary disease, unspecified; K21.9 Gastro-esophageal reflux disease without esophagitis; E11.9 Type 2 diabetes mellitus without complications; E66.9 Obesity, unspecified; Z88.5 Allergy status to narcotic agent; Z88.1 Allergy status to other antibiotic agents; Z88.8 Allergy status to other drugs, medicaments and biological substances; Z95.5 Presence of coronary angioplasty implant and graft; Z86.19 Personal history of other infectious and parasitic diseases; Z86.16 Personal history of COVID-19; Z90.49 Acquired absence of other specified parts of digestive tract; Z87.891 Personal history of nicotine dependence; Z79.01 Long term (current) use of anticoagulants; Z79.82 Long term (current) use of aspirin; Z79.4 Long term (current) use of insulin; Z79.899 Other long term (current) drug therapy; Z68.30 Body mass index [BMI] 30.0-30.9, adult
CPT/HCPCS: 99283